=== PATIENT | female | born 1980 | race Caucasian/White ===

== ENCOUNTER 2019-04-16 06:43 | Emergency (ER) | payer MEDICAID, SELFPAY ==
[2019-04-16 06:44] VITALS: BP 143/106; PULSE 86; RESP 16; TEMP 36.6; O2SAT 100; BMI 35.7
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
[2019-04-16] MEDS: Ketorolac 30 MG/ML Syringe IM (07:28)
[2019-04-16] MEDS: Orphenadrine 60 MG/2 ML Ampul IM (07:28)
--- NOTE | 2019-04-16 07:38 | RAD_ITS ---
STUDY: X-RAY - PELVIS AND RIGHT HIP REASON FOR EXAM: Female, 39 years old. Right hip pain. TECHNIQUE: 3 views of the pelvis and hip. COMPARISON: None. FINDINGS: There is a non-specific bowel gas pattern. Normal visualized soft tissue structures. Normal bilateral iliac wings, sacroiliac joints and visualized sacrum. Normal bilateral superior and inferior pubic rami. Normal pubic symphysis. Normal bilateral ischial tuberosities. Normal visualized femoral head. Normal acetabulum. Normal hip joint. RAD/HIP, UNI W/ Pelvis 2-3 Views IMPRESSION: Normal x-ray examination of the pelvis and hip. Electronically Signed: Jluis Mcknight, at 8:16 EDT , Service support ,
--- NOTE | 2019-04-16 07:48 | RAD_ITS ---
STUDY: X-RAY - LUMBAR SPINE REASON FOR EXAM: Female, 39 years old. Low back pain. TECHNIQUE: 3 view(s) of the lumbar spine were obtained. COMPARISON: None FINDINGS: Normal lumbar lordosis. There is no substantial scoliosis. There is a normal alignment of the vertebrae. Minimal anterior spondylosis at the L3-L4 level. Normal disc space heights. Large amount of fecal material is seen in the colon. RAD/Lumbar Spine 2 or 3 Views IMPRESSION: Degenerative changes of the spine, as detailed above. Electronically Signed: Jluis Mcknight, at 8:15 EDT , Service support ,
[2019-04-16 08:47] VITALS: BP 138/72; PULSE 82; RESP 18; TEMP 36.6; O2SAT 99
== END 2019-04-16 08:48 | disposition home or self-care (01) ==
PROVIDERS: Emergency Provider Emergency Medicine
DX: M54.5 Low back pain (principal); Z87.898 Personal history of other specified conditions; F17.200 Nicotine dependence, unspecified, uncomplicated
CPT/HCPCS: 72100; 73502; 96372; 99284

== ENCOUNTER 2019-08-17 21:10 | Emergency (ER) | payer MEDICAID, SELFPAY ==
[2019-08-17 21:10] VITALS: BP 152/89; PULSE 83; RESP 18; TEMP 36.5; O2SAT 100; BMI 32.1
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
--- NOTE | 2019-08-17 21:26 | RAD_ITS ---
HISTORY: PT FELL TODAY, PAIN IN RT 1ST DIGIT COMPARISON: None FINDINGS: # of images incl. paperwork: 3 XR Foot Min 3 Views : Patient has had an osteotomy of the distal first metatarsal with screw fixation. The bone appears to be fractured between the base of the screw and the medial aspect of the distal metaphysis of the first metatarsal. A comminuted fracture is present through the distal end of the first proximal phalanx with intra-articular extension and overriding fracture fragments. Soft tissue swelling is present. The screw within the first metatarsal is proud. It extends cranially out of the cortex by several millimeters and may have loosened. No additional fractures are perceived. RAD/Foot min 3 Views IMPRESSION: Acute comminuted fracture of the distal end of the first proximal phalanx. Possible nondisplaced fracture extending from the proximal aspect of the fixation screw in the first metatarsal to the medial cortex. at 2205 Reported and signed by: Chase Shirley MD Electronically Signed: Chase Shirley MD at 22:04 EST Tel , Service support ,
--- NOTE | 2019-08-17 21:30 | RAD_ITS ---
HISTORY: PT FELL TODAY, LATERAL LT ANKLE PAIN COMPARISON: None FINDINGS: # of images incl. paperwork: 3 XR Ankle Min 3 Views : Patient has had a osteotomy and bunionectomy on the distal first metatarsal No fracture or osseous abnormality. The ankle mortise is intact. Soft tissue swelling is not seen. RAD/Ankle min 3 Views IMPRESSION: Normal left ankle. at 2212 Reported and signed by: Chase Shirley MD Electronically Signed: Chase Shirley MD at 22:14 EST Tel , Service support ,
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
[2019-08-17] MEDS: oxyCODONE 5 MG Tablet PO (22:45)
== END 2019-08-17 23:07 | disposition home or self-care (01) ==
PROVIDERS: Emergency Provider Emergency Medicine
DX: S62.304A Unspecified fracture of fourth metacarpal bone, right hand, initial encounter for closed fracture (principal); S92.411A Displaced fracture of proximal phalanx of right great toe, initial encounter for closed fracture; X50.1XXA Overexertion from prolonged static or awkward postures, initial encounter; Y04.0XXA Assault by unarmed brawl or fight, initial encounter; Y93.9 Activity, unspecified; Y92.9 Unspecified place or not applicable; Z87.898 Personal history of other specified conditions; F17.200 Nicotine dependence, unspecified, uncomplicated
CPT/HCPCS: 73130; 73610; 73630; 99284

== ENCOUNTER 2019-09-07 12:46 | Day surgery (SDC) | payer MEDICAID, SELFPAY ==
[2019-09-07] VITALS (7 sets, daily range): BP systolic 116–148; BP diastolic 78–97; PULSE 54–71; RESP 15–16; TEMP 36.2–36.8; O2SAT 95–100; BMI 32.5
[2019-09-07 13:17] LABS: Internal QC Validated? YES +Cl - CLEAR BKGD; Pregnancy, Urine Negative Negative
[2019-09-07 13:28] LABS: Absolute Lymphocyte Count 1.91 X10^3/uL (0.83-4.51); Absolute Neutrophil Count 4.8 X10^3/uL (2.0-7.7); Basophil# 0.03 X10^3/uL; Basophil% 0.4 % (0-1); Eosinophil# 0.21 X10^3/uL; Eosinophils% 2.9 % (0-5); Hematocrit 45.4 % (37-47); Hemoglobin 14.6 g/dL (12.0-15.0); Lymphocyte # 1.91 X10^3/ul (4.0); Lymphocyte % 26.1 % (19-41); Mean Corp Hgb Conc 32.2 g/dL (32-36); Mean Corpuscular Volume 93.4 fL (81-99); Monocyte# 0.39 X10^3/uL; Monocyte% 5.3 % (0-10); NRBC Flagged by Analyzer 0 % (0-5); Neutrophil # 4.76 X10^3/uL (2.7-7.7); Platelet Count 186 K/mm3 (150-450); RBC Distribution Width CV 14.5 % (11.6-14.6); RBC Distribution Width SD 49.8 fl (35.1-43.9); Red Blood Count 4.86 M/mm3 (4.2-5.4); White Blood Count 7.3 K/mm3 (4.4-11.0)
[2019-09-07] MEDS: Lactated Ringers 1,000 ML 100 ML IV (13:42)
[2019-09-07 13:44] LABS: ALB/GLOB Ratio 0.9 RATIO (0.9-2.4); AST(SGOT) 34 U/L (15-37); Alanine Aminotransfer ALT/SGPT 58 U/L (13-56); Albumin, Serum 3.5 g/dL (3.2-5.0); Alkaline Phosphatase 85 U/L (45-117); Anion Gap 1 (5-15); BUN 13 mg/dL (7-18); BUN/Creat Ratio 17.2 RATIO (10-20); Calcium,Total 8.7 mg/dL (8.5-10.1); Chloride 111 mmol/L (98-107); Creatinine, Serum 0.76 mg/dL (0.55-1.02); EST Glomerular Filtration Rate 91 mL/min (>60); Est Glom Filt Rate - Afr Amer 110 mL/min (>60); Estimated Creatinine Clearance 79.38 ml/min; Globulin 3.8 g/dL (2.2-4.2); Glucose 84 mg/dL (74-106); Potassium 4.6 mmol/L (3.5-5.1); Protein, Total 7.3 g/dL (6.4-8.2); Sodium Level 141 mmol/L (136-145)
--- NOTE | 2019-09-07 14:15 | BON_PTH ---
PATIENT: PAYTON TITUS [place] [facility] [place][id number] AGE/SX: 39/F ROOM: RE09/07/[address]: DEMETRICE HernándezM : 1980 BED: DIS: 09/07/2019 SPEC #: [id number] RECD: 09/07/19 17:00 STATUS: PETER OLGA #: [id number] CHAUNCEY: 09/07/19 14:[address]: Russell Vidales DEPT: SURGICAL PATHOLOGY RECD BY: Derrell Rivas ENTERED: 09/08/19 10:47 SP TYPE: Bone OTHR DR: Out of Town Doctor Tissues: Bone of foot, NOS Procedures: Decalcification bone/plaque Surgery Specimen Level IV HEADER OPERATION: First toe and placement cadaveric bone graft PRE-OP DIAGNOSIS: Displaced fracture of proximal phalanx of right great toe, pain in right foot TISSUE SUBMITTED: First toe fracture, right foot MICROSCOPIC DIAGNOSIS First toe of right foot, fracture, biopsy: Granulation tissue consistent with organizing fracture site. Bone with reactive and reparative change. AM:sabrina 09/11/19 MICROSCOPIC DESCRIPTION Slides are reviewed. GROSS DESCRIPTION Received is one container labeled with the patient name and designated first toe right foot. The specimen consists of multiple irregular fragments of light daley bone that in aggregate measure 3 x 2 x 0.2 cm. The specimen is totally submitted in one cassette after decalcification. /AM:bree 09/08/19 TC:5 [facility]: [id number], [id number]
[2019-09-07] MEDS: Cefazolin 2 GM in 0.9% Normal Saline 100 ML IV (14:52)
--- NOTE | 2019-09-07 15:00 | RAD_ITS ---
STUDY: X-RAY - RIGHT FOOT CLINICAL: Female, 39 years old. First toe fracture. Fusion TECHNIQUE: 3 view(s) of the foot from intraoperative fluoroscopy. Fluoroscopy utilized for 0 minutes 42 seconds.. COMPARISON: August 17, 2019. FINDINGS: Intraoperative fluoroscopy utilized during ORIF of first proximal phalanx fracture and placement of a screw across the first interphalangeal joint. There is prior osteotomy and screw placement in the first metatarsal head. RAD/Foot 2 Views IMPRESSION: Intraoperative fluoroscopy. Electronically Signed: Kei Acevedo MD at 16:51 EST , Service support ,
--- NOTE | 2019-09-07 15:02 | DCINST_ITS ---
Discharge Diet: Light diet - advance as tolerated Discharge Activity: May Not Drive Weight Bearing Status: No weight bearing - No weightbearing on toes or ball of right foot Keep extremity elevated above heart level: Right Leg - Keep right foot elevated above chest level for at least 50 minutes of every hour Call your doctor if your incision/area has: Continuous Slow Oozing, Sudden Increased Bleeding, Foul Smelling Discharge Call your doctor if you observe: Fever of 101 or Higher, Shortness of breath, Chest pain, Increased palpitations (irregular heartbeat), Calf discomfort, Uncontrolled pain Cleanse incision/area with: Do not get Incision Wet, Keep Dressing Clean & Dry Allergies/Adverse Reactions: Allergies No Known Allergies Allergy (Verified 09/07/19 13:26) Medications to take at Discharge Naproxen [Naprosyn] 500 mg PO BID PRN #20 tab 08/17/19 Naproxen 500 mg PO Q12H PRN PRN 10 Days #20 tab 09/07/19 Oxycodone HCl/Acetaminophen [Percocet 5/325] 1 - 2 tab PO Q6H PRN PRN 4 Days #24 tab 09/07/19 The following prescriptions were given: Naproxen 500 mg PO Q12H PRN PRN 10 Days #20 tab PRN Reason: Pain Score 1-07/09 Prescription Printed Oxycodone HCl/Acetaminophen [Percocet 5/325] 1 - 2 tab PO Q6H PRN PRN 4 Days #24 tab PRN Reason: Pain Prescription Printed Primary Care Physician: PADMINI MARY [Other] Test Results: Test results from this visit will be discussed in further detail at your follow- up appointment, if applicable. Please Follow Up With: Russell Vidales DPM When: in 1 week, sooner if needed
[2019-09-07] MEDS: Bupivacaine Mpf 0.5% 30 ML VIAL (15:15)
--- NOTE | 2019-09-07 16:23 | PCM.OPRPT ---
Report of Operation Date of Procedure: 09/07/19 Pre-Operative Diagnosis: Painful proximal phalanx 1st toe fracture, right Post-Operative Diagnosis: Same Surgery/Procedure Performed:: Right 1st toe interphalangeal arthrodesis scallop binder: yes - Dr. Ana Maher Type of Anesthesia:: General, Local Specimen's removed: Bone from right 1st toe fracture sent to pathology Estimated Blood Loss (mL): 1mL Description of Procedure: Indications: This is a 39 year old female who sustained a significantly displaced comminuted fracture of the right 1st toe at level of the head of the hallux proximal phalanx. Due to the significant degree of fracture we discussed open reduction internal fixation vs arthrodesis of the hallux interphalangeal joint. This was discussed with her in great detail, reviewed the procedures, as well as the rationale of the procedures with her in great detail. We discussed and reviewed the possible benefits vs risks/potential complications. The estimated healing/recovery time and protocol were reviewed with her in detail. Reviewed the goals and the expectations. She expressed understanding and agreement and elected to proceed forward with surgical intervention as noted above. The consent forms were reviewed with her and she freely signed them. All of her questions were answered. No guarantees were given or implied. She was cleared from medical standpoint to proceed with surgery. Also advised patient not to smoke or use tobacco post op as this will likely slow healing and can even cause nonhealing (including nonunion). She understands the risks. Operative Procedure: The patient was brought back into the operating room and was placed on the operating table in the supine position. Patient was carefully secured to the operating room table with a safety belt around her waist. A time out was performed and the patient was properly identified and the surgical plan was confirmed. The patient received IV antibiotic prophylaxis - 2g of Ancef. The patient received general anesthesia per the anesthesiologist. A well padded pneumatic tourniquet was applied around the right ankle. The right foot was scrubbed, prepped, and draped in the usual aseptic fashion. Attention was directed to the right foot, there was significant comminuted displaced fracture of the head of the hallux proximal phalanx. The right foot was elevated for 3 minutes and the right ankle pneumatic tourniquet was inflated to 250mmHg. A total of 10 mL of 5% Bupivacaine plain was given as a lock block around the surgical site (1st ray block). A linear longitudinal skin incision was medially along the dorsal 1st toe, just medial the the extensor hallucis longus tendon. Dissection was completed down to the hallux interphalangeal joint capsule. The hallux interphalangeal joint capsule was incised and was partially reflected visualizing the hallux interphalangeal joint. There was comminuted displaced fracture of the hallux of the hallux proximal phalanx with significant damage and destruction of cartilage to the joint surfaces. There were many fragments of bone in small pieces. The remaining cartilage from the head of the proximal phalanx a as well as from the base of the middle phalanx was resected using a bone cutting rongeur and curette. Resected bone was sent to pathology as specimen. The site was flushed out with copious amounts of normal saline solution. An Arthrex FT compression screw was placed through the phalanges of the 1st toe holding the toe in rectus position, using rigid open reduction internal fixation technique. This was confirmed with intra operative fluoroscopy. The edges were packed with cancellous bone graft. There was good bone to bone contact and the site was rigid. The site was again flushed out with copious amounts of normal saline solution. The capsule and subcutaneous tissue was reapproximated using 4-0 Vicryl. The skin was reapproximated using 4-0 Monocryl. Cavailon was painted to the edges of the sutured skin incision and steristrips were applied across the sutured skin incision. An additional 4mL of a 0.5% Bupivacaine plain was given as a lock block around the surgical site for further pain control. The pneumatic tourniquet was deflated (total tourniquet time was 56 minutes), there was immediate return of warmth and perfusion to the foot and to all toes on the foot with normal temperature gradient and CFT < 2 seconds to all toes once the tourniquet was deflated. A dressing was applied which consisted of Betadine soaked adaptic, 4x4 gauze, Kerlix, and an beth bandage. Of note, all vital structures including all vital neurovascular and tendon structures were properly identified, protected, and retracted as necessary throughout the above operative procedures. The anterior tibial tendon was left intact. The patient tolerated the above operative procedures well at the anesthesia well with no complication. The patient was transported from the operating room to the recovery room with vital signs stable and in good condition. Post operative orders were placed. Post operative instructions were reviewed with her and her family who was with her today. No weightbearing right foot, keep right foot elevated for at least 50 minutes of every hour, keep dressing and splint clean, dry and intact. Prescription for Percocet and Naproxen provided. Post operative xrays were obtained in the recovery room (DP, Oblique, and lateral foot) - there was again noted to be hallux interphalangeal joint arthdoesis in good position, with joint surfaces in good alignment and good bone to bone contract with intact hardware; no acute problems or complications seen. Patient to follow up with me in office within 1 week, sooner if needed. Grafts/Implants Used: 1 x Arthrex 4.0mm screw - Complications None
--- NOTE | 2019-09-07 16:35 | RAD_ITS ---
STUDY: X-RAY - RIGHT FOOT CLINICAL: Female, 39 years old. Fracture TECHNIQUE: 3 view(s) of the foot. COMPARISON: August 17, 2019. FINDINGS: Normal talus, calcaneus, and tarsal bones. Normal visualized subtalar, talonavicular, calcaneocuboid, tarsal and tarsometatarsal articulations. There is stable osteotomy and screw placement the first metatarsal. There is fusion of the first interphalangeal joint with screw extending from the distal to the proximal phalanx. There is improved alignment of fracture of the first proximal phalanx. There is mild degenerative arthrosis of the metatarsophalangeal joint of the hallux. Normal second through fifth metatarsophalangeal joints. Normal interphalangeal joints and phalanges of the lesser toes. The soft tissue structures are unremarkable. RAD/Foot min 3 Views IMPRESSION: Status post ORIF first proximal phalanx fracture with fusion at the first interphalangeal joint. Electronically Signed: Kei Acevedo MD at 16:53 EST , Service support ,
[2019-09-07] MEDS: Acetaminophen 325 MG Tablet PO (17:25)
[2019-09-07] MEDS: oxyCODONE 5 MG Tablet PO (17:26)
== END 2019-09-07 17:47 | disposition home or self-care (01) ==
LOC: SDC 12:48 → AC 13:28
PROVIDERS: Anesthesiology; Referring Provider Podiatrist; Visit Provider Podiatrist
PROC: (CPT 28485; principal; 2019-09-07 14:00)
DX: S92.411A Displaced fracture of proximal phalanx of right great toe, initial encounter for closed fracture (principal); W19.XXXA Unspecified fall, initial encounter; Y93.9 Activity, unspecified; Y92.9 Unspecified place or not applicable; Z86.19 Personal history of other infectious and parasitic diseases; Z87.891 Personal history of nicotine dependence; F17.200 Nicotine dependence, unspecified, uncomplicated
CPT/HCPCS: 28755; 36415; 73620; 73630; 76000; 80053; 81025; 85025; 88304; 88305; 88311; C1713; J7120; A4216; J2405

== ENCOUNTER 2019-09-07 23:14 | Emergency (ER) | payer MEDICAID, SELFPAY ==
[2019-09-07 13:27] VITALS: BMI 32.5
[2019-09-07 23:15] VITALS: BP 139/86; PULSE 87; RESP 19; TEMP 36.6; O2SAT 96; BMI 32.0
--- NOTE | 2019-09-07 23:52 | ED.DCSUM_ITS ---
History of Present Illness Chief Complaint: Lower Extremity Injury Detail of Chief Complaint: Postop pain Informant: Patient Onset: Today Current Severity: Severe Maximum Severity: Severe Narrative: Patient started a recent fracture to her right great toe. She underwent first toe interphalangeal arthrodesis today with Dr. Vidales. Patient states she got home from the hospital around 6 PM. She took 1 tab of naproxen and 1 tab of Percocet at 7:30 PM. She presents here around 11:30 PM crying in severe pain. - Past Medical History (1) Toe fracture Status: Acute Past Medical History - Allergies and Home Meds Allergies/Adverse Reactions: Allergies No Known Allergies Allergy (Verified 09/07/19 23:18) Primary Care Physician: [facility] Doctor,Out of [NON-STAFF] - Smoking Status: Current every day smoker Review of Systems General: Denies: Chills, Fever Eyes: Denies: Visual changes - bilaterally ENT: Denies: Bilateral ear pain Cardiovascular: Denies: Chest pain Respiratory: Denies: Dyspnea, Cough Gastrointestinal: Denies: Abdominal pain, Vomiting Musculoskeletal: Reports: Arthralgias, Extremity Pain Hematologic: Denies: Easy bruising Allergy: Denies: Uticaria Physical Exam Vital Signs/Narrative: Vital Signs Temp Pulse Resp BP Pulse Ox 09/07/19 23:15 97.8 F 87 19 H 139/86 H 96 Inital Vital Signs reviewed: Yes General: Well nourished, Well developed ENT: Moist mucous membranes Cardiovascular: Tachycardia Respiratory: No distress, CTA bilaterally Abdomen: Soft, Nontender Extremities: - - Right foot is elevated on the bed rail. Dressing is pulled back over her toes. She has good coloration and good cap refill. She has good sensation. Neurological: Alert, Oriented x3 Psychological: Tearful Diagnostic/Tx/Re-eval - Medical Decision Making Patient was given 0.5 mg of Dilaudid IV along with Zofran. On repeat evaluation pain is improved and she is requesting discharge to home. She is written for 1- 2 tabs of Percocet every 6 hours. I encouraged her to use 2 tabs at a time for the next day or so to keep her pain under control. She is to return for worsening symptoms or concerns. ED Disposition - Plan for ED Patient: Disposition: Home or Assisted Living Diagnosis: Postoperative pain Instructions: POST OP WOUND CHECK, Pain Referrals: Russell Vidales DPM [STAFF PHYSICIAN] -
[2019-09-08] MEDS: HYDROmorphone 1 MG/ML Syringe 0.5 MG IV (00:28)
[2019-09-08] MEDS: Ondansetron 4 MG/2 ML Vial IV (00:28)
== END 2019-09-08 01:18 | disposition home or self-care (01) ==
PROVIDERS: Emergency Provider Emergency Medicine
DX: M79.674 Pain in right toe(s) (principal); Z98.890 Other specified postprocedural states; F17.200 Nicotine dependence, unspecified, uncomplicated
CPT/HCPCS: 96374; 96375; 99283; A4216; J2405

== ENCOUNTER 2019-11-05 04:34 | Emergency (ER) | payer MEDICAID, SELFPAY ==
[2019-11-05 04:36] VITALS: BP 139/109; PULSE 93; RESP 12; TEMP 36.9; O2SAT 98; BMI 29.9
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
[2019-11-05] MEDS: HYDROcodone Bitartrate/Apap 5/325 Tablet PO (04:52)
[2019-11-05] MEDS: Ibuprofen 400 MG Tablet 800 MG PO (04:52)
[2019-11-05] MEDS: Diphth,Pertuss(Acell),Tet Vac 0.5 ML Vial IM (04:53)
[2019-11-05 05:33] VITALS: BP 144/97; PULSE 83; RESP 18; O2SAT 97
== END 2019-11-05 05:34 | disposition home or self-care (01) ==
PROVIDERS: Emergency Provider Emergency Medicine
DX: T71.9XXA Asphyxiation due to unspecified cause, initial encounter (principal); Y04.0XXA Assault by unarmed brawl or fight, initial encounter; Y93.9 Activity, unspecified; Y92.9 Unspecified place or not applicable; F17.200 Nicotine dependence, unspecified, uncomplicated
CPT/HCPCS: 90471; 90715; 99283

== ENCOUNTER 2020-02-24 12:24 | Emergency (ER) | payer MEDICAID, SELFPAY ==
[2020-02-24 12:26] VITALS: BP 155/95; PULSE 100; RESP 17; TEMP 36.8; O2SAT 100; BMI 23.8
--- NOTE | 2020-02-24 12:53 | ED.DCSUM_ITS ---
History of Present Illness Chief Complaint: Lower Extremity Injury Informant: Patient Onset: Days - 5 days Context: Gradual Onset Current Severity: Moderate Maximum Severity: Moderate Narrative: Patient presents with 5-day history of right foot pain and swelling. She points to the second MTP joint. She does have swelling to this area. No erythema or warmth. No open wounds. She has had prior surgery on the first metatarsal - Past Medical History (1) No significant past medical history Status: Acute Past Medical History - Allergies and Home Meds Allergies/Adverse Reactions: Allergies No Known Allergies Allergy (Verified 11/05/19 04:35) Primary Care Physician: Care Physician,No Primary [Primary Care Provider] - Prior records reviewed: Yes Surgical History: - - Bilateral tubal ligation Smoking Status: Current every day smoker Review of Systems General: Denies: Chills, Fever Eyes: Denies: Visual changes - bilaterally ENT: Denies: Bilateral ear pain Cardiovascular: Denies: Chest pain Respiratory: Denies: Dyspnea, Cough Gastrointestinal: Denies: Abdominal pain, Nausea, Vomiting, Diarrhea Musculoskeletal: Reports: Swelling, Extremity Pain Skin: Denies: Rash, Wounds Neurological: Denies: Headache Hematologic: Denies: Easy bruising, Easy bleeding Allergy: Denies: Uticaria Physical Exam Vital Signs/Narrative: Vital Signs Temp Pulse Resp BP Pulse Ox 02/24/20 12:26 98.3 F 100 17 155/95 H 100 Inital Vital Signs reviewed: Yes General: Well nourished, Well developed Head: Normocephalic ENT: Moist mucous membranes Neck: Supple Cardiovascular: Regular rate, Regular rhythm Respiratory: No distress, CTA bilaterally Abdomen: Soft, Nontender Extremities: - - Edema over the distal foot. Focal tenderness along the distal second MT. No open wounds. Good cap refill and sensation distally. No tenderness at the ankle. Skin: Normal color Neurological: Alert, Oriented x3 Psychological: Normal affect Diagnostic/Tx/Re-eval Impressions Foot X-Ray 02/24/20 12:55 IMPRESSION: Status post fusion of the interphalangeal joint of the great toe as well as osteotomy of the distal portion of the first metatarsal. Electronically Signed: Jlusi Mcknight, at 13:22 EDT , Service support , 02/24/20 12:55 Foot min 3 Views [RAD] Stat - Medical Decision Making Patient was given naproxen here for pain. Test results discussed with the patient. Alec wrap will be applied. She declines crutches. She will be given naproxen and a few days of steroids. She is referred to podiatry if not improving. ED Disposition - Plan for ED Patient: Disposition: Home or Assisted Living Diagnosis: Foot sprain Instructions: ED Sprain Foot Prescriptions: Prednisone [Deltasone] 40 mg PO DAILY #10 tab Transmission Status: Pending to [facility] Naproxen [Naprosyn] 500 mg PO BID PRN PRN #20 tab PRN Reason: Pain Score 4-10/10 Transmission Status: Pending to [facility] Referrals: Russell Vidales DPM [STAFF PHYSICIAN] - 1 Week if not improving
--- NOTE | 2020-02-24 12:55 | RAD_ITS ---
STUDY: X-RAY - RIGHT FOOT CLINICAL: Female, 40 years old. Distal dorsal pain, nki TECHNIQUE: 3 view(s) of the foot. COMPARISON: Comparison is made with prior examination dated September 07, 2019. FINDINGS: Normal talus, calcaneus, and tarsal bones. Normal visualized subtalar, talonavicular, calcaneocuboid, tarsal and tarsometatarsal articulations. Normal metatarsi. The patient is status post fusion of the distal interphalangeal joint of the great toe. Status post osteotomy of the distal aspect of the first metatarsal. Normal tibial and fibular sesamoid bones. Normal interphalangeal joint of the great toe. Normal phalanges of the great toe. Normal second through fifth metatarsophalangeal joints. Normal interphalangeal joints and phalanges of the lesser toes. The soft tissue structures are unremarkable. RAD/Foot min 3 Views IMPRESSION: Status post fusion of the interphalangeal joint of the great toe as well as osteotomy of the distal portion of the first metatarsal. Electronically Signed: Jluis Mcknight, at 13:22 EDT , Service support ,
[2020-02-24] MEDS: Naproxen 500 MG Tablet PO (12:56)
== END 2020-02-24 13:56 | disposition home or self-care (01) ==
PROVIDERS: Emergency Provider Emergency Medicine
DX: S93.601A Unspecified sprain of right foot, initial encounter (principal); X58.XXXA Exposure to other specified factors, initial encounter; Y93.9 Activity, unspecified; Y92.9 Unspecified place or not applicable; F17.200 Nicotine dependence, unspecified, uncomplicated
CPT/HCPCS: 73630; 99283

== ENCOUNTER 2020-04-16 14:21 | Emergency (ER) | payer MEDICAID, SELFPAY ==
[2020-04-16 14:23] VITALS: BP 136/16; PULSE 98; RESP 16; TEMP 36.7; O2SAT 99; BMI 24.5
--- NOTE | 2020-04-16 14:54 | ED.DCSUM_ITS ---
History of Present Illness Chief Complaint: Rash Informant: Patient Onset: Days Context: Gradual Onset Timing: Continuous Narrative: Patient is a 40-year-old female denies any past medical history presenting with rash to her left flank area. She states is very itchy and irritates her especially she bumps up against anything. She also has a little bit on her left back. Patient states he is never had a rash like this before. It is now starting to scab over. She denies associated fever, chills or any other systemic symptoms. Patient also notes that for the past 3 days she has had frequency of urination and dysuria at the end of urination. She denies any blood in her urine. She denies any abnormal vaginal bleeding or discharge. She is concerned she might have a urinary tract infection. Past Medical History - Allergies and Home Meds Allergies/Adverse Reactions: Allergies No Known Allergies Allergy (Verified 04/16/20 14:23) Primary Care Physician: Amber Draper MD [STAFF PHYSICIAN] - Past Medical History: None Surgical History: - - Bilateral tubal ligation Smoking Status: Current every day smoker Review of Systems General: Denies: Chills, Fever, Sweats Eyes: Denies: Visual changes - bilaterally, Diplopia ENT: Denies: Rhinorrhea, Sore throat Cardiovascular: Denies: Chest pain, Palpitations Respiratory: Denies: Dyspnea, Cough, Dyspnea on exertion Gastrointestinal: Denies: Abdominal pain, Nausea, Vomiting, Diarrhea, Melena, Hematochezia Genitourinary: Reports: Dysuria, Frequency. Denies: Hematuria Musculoskeletal: Denies: Back pain, Extremity Pain Skin: Reports: Rash. Denies: Wounds Neurological: Denies: Headache, Weakness, Numbness Physical Exam Vital Signs/Narrative: Vital Signs Temp Pulse Resp BP Pulse Ox 04/16/20 14:23 98.1 F 98 16 136/16 H 99 General: Well nourished, Well developed, No Acute Distress Head: Normocephalic, Atraumatic Eyes: Perrl, EOMI ENT: Moist mucous membranes, No rhinorrhea Neck: Supple, Nontender Cardiovascular: Regular rate, Regular rhythm, No murmurs Respiratory: No distress, CTA bilaterally, Chest nontender Abdomen: Soft, Nontender, Nondistended, Normal bowel sounds Back: Nontender, Normal Inspection Extremities: Nontender, No edema Skin: Normal color, Rash - Erythematous, vesicular rash of the left mid abdomen and radiated to the back in a dermatomal pattern. Some of the lesions are starting to crust over. Rash is highly consistent with shingles. No significa nt surrounding erythema or signs of bacterial superinfection. Neurological: Alert, Oriented x3, Cranial nerves II-XII grossly intact, Normal Strength, Normal Sensation Psychological: Normal affect, Normal Mood Diagnostic/Tx/Re-eval Laboratory Data 04/16/20 04/16/20 15:05 15:05 Urine Color Yellow Urine Clarity Sl. Cloudy Urine pH 5.0 Ur Specific Kiefer 1.030 Urine Protein 30 H Urine Glucose (UA) Normal Urine Ketones 5 H Urine Occult Blood 25 H Urine Nitrite Positive H Urine Bilirubin Negative Urine Urobilinogen Normal Ur Leukocyte Esterase 500 H Urine RBC 0 SEEN Urine WBC 50-100 SEEN Ur Squamous Epith Cells 0-5 SEEN Urine Bacteria 1+ Urine Mucus 1+ Urine Test Negative - Medical Decision Making Patient is evaluated for rash. Present for about 4 days. The rash is co nsistent with shingles. As the rash is been present for more than 72 hours I do not think antiviral therapy at this point would be helpful. She is given a Lidoderm patch in the ER. While doing the review of systems she also comments that she has had symptoms consistent with a UTI for the past 3 days. Initial urine is consistent with a UTI. Patient does not want a wait for the microscopic. She will be started on Keflex. As she is low risk, cultures not sent. Patient is counseled on using Lidoderm patch for pain control. She is counseled to keep it covered and avoid direct contact with small children or anyone who is immunocompromise until all of the vesicles have blistered over. Patient is counseled on signs and symptoms requiring return to the emergency room. Patient verbalizes agreement and understand this plan. Patient discharged home in stable and improved condition. ED Disposition - Plan for ED Patient: Disposition: Home or Assisted Living Diagnosis: Herpes zoster dermatitis, UTI (urinary tract infection) Instructions: ED CYSTITIS Female Adult, ED Shingles Prescriptions: Cephalexin [Keflex] 500 mg PO Q12 #10 cap Transmission Status: [id number] Lidocaine [Lidoderm Patch] 1 patch TOPICAL DAILY #6 patch Transmission Status: [id number] Referrals: Amber Draper MD [STAFF PHYSICIAN] -
[2020-04-16 15:13] LABS: Red Blood Cells-Urine 0 SEEN /hpf (0-5)
[2020-04-16 15:18] LABS: Color, Urine Yellow (Yellow); Glucose, Dipstick Normal (Normal); Ketone-Dipstick 5 mg/dl (Negative); Leukocyte Esterase-Dipstick 500 /ul (Negative); Nitrite-Dipstick Positive (Negative); Occult Blood-Urine 25 /ul (Negative); Protein-Dipstick 30 mg/dl (Negative); Urine Bilirubin Dipstick Negative (Negative); Urine Clarity Sl. Cloudy (Clear); Urine Urobilinogen Normal (Normal)
[2020-04-16 15:20] LABS: Internal QC Validated? YES +Cl - CLEAR BKGD; Pregnancy, Urine Negative Negative
[2020-04-16 15:24] LABS: White Blood Cells 50-100 SEEN /hpf (0-5)
--- NOTE | 2020-04-16 15:24 | ED.RN ---
Patient refusing to stay for test results and medication. Dr Jarvis made aware. Patient left before discharge instructions were completed.
[2020-04-16 15:25] LABS: Bacteria 1+ /hpf (None Seen); Mucous, Urine 1+ /hpf (<or=2+); Squamous Epithelial Cells - UA 0-5 SEEN /hpf (5-10)
[2020-04-16 15:41] VITALS: RESP 16
== END 2020-04-16 15:41 | disposition home or self-care (01) ==
PROVIDERS: Emergency Provider Emergency Medicine
DX: B02.8 Zoster with other complications (principal); N39.0 Urinary tract infection, site not specified; F17.200 Nicotine dependence, unspecified, uncomplicated; Z98.51 Tubal ligation status
CPT/HCPCS: 81001; 81025; 99281; 99282

== ENCOUNTER 2020-05-19 21:18 | Emergency (ER) | payer MEDICAID, SELFPAY ==
[2020-05-19 21:20] VITALS: BP 147/110; PULSE 120; RESP 18; TEMP 36.6; O2SAT 99; BMI 24.7
[2020-05-19] MEDS: HYDROmorphone 1 MG/ML Syringe IM (22:53)
[2020-05-19] MEDS: Ondansetron ODT 4 MG Tablet PO (22:54)
--- NOTE | 2020-05-19 23:26 | ED.DCSUM_ITS ---
- ER Visit Summary Date of Service: 05/19/20 Chief Complaint: Abscess History of Present Illness: The patient is a 40 F with no primary care physician. She reports he has an abscess on the posterior right thigh that began 5 to 6 days ago. She has an aching pain is 10-10 in severity. Is worsened by walking or touching it. Is relieved by nothing. It has been draining. She denies any fever or chills. She is had nausea without vomiting. Physical Examination: Vitals: Stable. Afebrile. General: Well-nourished and well-developed. Head: Normocephalic atraumatic. Neck: Supple, no lymphadenopathy. No JVD. Nontender. Cardiovascular: Regular rate and rhythm. No murmurs. Respiratory: No respiratory distress. Clear to auscultation bilaterally. Abdominal: Soft, nontender, nondistended, normal bowel sounds. No guarding, rebound, or peritoneal signs. Back: Nontender. Extremities: Posterior medial right thigh there is a 2 cm indurated area with approximate 10 cm surrounding erythema. She is neuro vas intact distal to this. Neurologic: Alert and oriented ?3. Cranial nerves II through XII are intact. Normal strength and sensation. Psych: Normal affect. Emergency Department Course and Treatment: Patient was given a dose of Dilaudid IM and Zofran p.o. She had an I&D performed. She tolerated this well. Treatment Plan: Patient will be discharged with doxycycline, [place], and Zofran. Instructed to follow-up with Dr. Mcclain in 2 days for a wound check. Return to the emergency department for any worsening symptoms. Disposition: To home in improved and stable condition. Impression: 1. Abscess right thigh. 2. Incision and drainage. Procedure Note: Abscess was cleansed with chlorhexidine soap. Anesthetized with 1% lidocaine without epinephrine. An incision was made with an 11 scalpel blade. A moderate amount of pus was drained. Curved hemostats were used to break up loculations. The wound was copiously irrigated with normal saline. It was loosely packed with iodoform gauze. The patient tolerated it well. This note was generated with [employer] software. It may contain incorrect words, spelling, and punctuation that were not noted in review of the chart prior to signing ED Disposition - Plan for ED Patient: Disposition: Home or Assisted Living Instructions: ED Abscess Incision And Drainage Prescriptions: Doxycycline 100 mg PO BID #14 cap Prescription Printed Hydrocodone Bitart/Apap 5-325 [[place] 5MG-325MG] 1 tab PO Q4H PRN PRN 2 Days #10 tab PRN Reason: Pain Prescription Printed Ondansetron [Zofran Odt] 4 mg PO Q8H PRN PRN #10 tab PRN Reason: Nausea Prescription Printed Referrals: Tommy Mcclain MD [STAFF PHYSICIAN] - 2 Days for wound check
[2020-05-20 00:32] VITALS: PULSE 100; RESP 16; O2SAT 98
== END 2020-05-20 00:32 | disposition home or self-care (01) ==
PROVIDERS: Emergency Provider Emergency Medicine
DX: L02.415 Cutaneous abscess of right lower limb (principal); R11.0 Nausea; R51 Headache; M54.2 Cervicalgia; R19.7 Diarrhea, unspecified; R06.00 Dyspnea, unspecified; F17.200 Nicotine dependence, unspecified, uncomplicated
CPT/HCPCS: 10060; 96372; 99283

== ENCOUNTER 2020-06-02 00:42 | Emergency (ER) | payer MEDICAID, SELFPAY ==
[2020-06-02 00:43] VITALS: BP 151/113; PULSE 109; RESP 18; TEMP 37.1; O2SAT 99; BMI 25.5
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
[2020-06-02] MEDS: Diphth,Pertuss(Acell),Tet Vac 0.5 ML Vial IM (02:08)
[2020-06-02] MEDS: Acetaminophen 500 MG Tablet 1000 MG PO (02:08)
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
[2020-06-02] MEDS: Lidocaine/Epi/Tetracaine 50 ML 1 APPLIC TOPICAL (02:20)
[2020-06-02 02:48] VITALS: PULSE 96; RESP 16; O2SAT 98
[2020-06-02 04:00] VITALS: RESP 18
[2020-06-02 05:06] VITALS: BP 149/81; PULSE 98; O2SAT 100
== END 2020-06-02 05:05 | disposition home or self-care (01) ==
PROVIDERS: Emergency Provider Emergency Medicine
DX: S01.01XA Laceration without foreign body of scalp, initial encounter (principal); Y04.0XXA Assault by unarmed brawl or fight, initial encounter; Y93.9 Activity, unspecified; Y92.009 Unspecified place in unspecified non-institutional (private) residence as the place of occurrence of the external cause; F15.90 Other stimulant use, unspecified, uncomplicated; F10.99 Alcohol use, unspecified with unspecified alcohol-induced disorder; F17.200 Nicotine dependence, unspecified, uncomplicated
CPT/HCPCS: 12001; 70450; 90471; 90715; 99284

== ENCOUNTER 2020-11-18 15:46 | Emergency (ER) | payer MEDICAID, SELFPAY ==
[2020-11-18 15:47] VITALS: BP 154/112; PULSE 92; RESP 16; TEMP 36; O2SAT 97; BMI 23.8
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
[2020-11-18 16:43] VITALS: BP 108/77; PULSE 62; RESP 15; O2SAT 98
== END 2020-11-18 16:46 | disposition home or self-care (01) ==
PROVIDERS: Emergency Provider Emergency Medicine
DX: G56.03 Carpal tunnel syndrome, bilateral upper limbs (principal); S39.012A Strain of muscle, fascia and tendon of lower back, initial encounter; X58.XXXA Exposure to other specified factors, initial encounter; Y93.9 Activity, unspecified; Y92.9 Unspecified place or not applicable; F17.200 Nicotine dependence, unspecified, uncomplicated
CPT/HCPCS: 99283

== ENCOUNTER 2021-01-12 17:20 | Emergency (ER) | payer MEDICAID, SELFPAY ==
[2021-01-12 17:21] VITALS: BP 148/109; PULSE 93; RESP 18; TEMP 36.2; O2SAT 96; BMI 24.2
--- NOTE | 2021-01-12 18:02 | CT_ITS ---
STUDY: CT ABDOMEN AND PELVIS WITHOUT CONTRAST REASON FOR EXAM: Female, 41 years old. abdominal pain RADIATION DOSAGE (If Supplied By Facility): CTDIvol = ( 6.36 ) mGy, DLP = ( 286.11 ) mGycm TECHNIQUE: Transaxial images were obtained from the dome of the diaphragm to the symphysis pubis without oral contrast, and without intravenous contrast. Sagittal and coronal images were reconstructed. Individualized dose optimization techniques were used for this CT. COMPARISON: None. FINDINGS: Mild scarring at the right lung base. No acute pulmonary findings. The visualized portions of the heart are within normal limits. Normal liver. 1 tiny calcification in the gallbladder. Normal spleen. Normal pancreas. Normal bilateral adrenal glands. 2.5 cm simple cyst lower pole of the right kidney. Otherwise normal right kidney. Normal left kidney. Normal visualized stomach. Normal small intestine. Stool filled colon. The appendix is visualized and appears normal. Normal abdominal aorta. Normal inferior vena cava. Normal retroperitoneum. Nondistended urinary bladder. Negative for pelvic mass or substantial free fluid of the pelvis. Status post tubal ligation. Normal abdominal wall. Normal osseous structures. CT/Abdomen/Pelvis without Cont IMPRESSION: Stool-filled colon. Nondistended small bowel and stomach. Negative for inflammatory features. A normal appendix is identified. Normal size of the kidneys bilaterally without hydronephrosis or stones. 2.5 cm cyst lower pole right kidney. Unremarkable liver, spleen and pancreas with a nondistended gallbladder. One tiny calcification, stone or wall calcification. Negative for bile duct dilatation. Negative for pelvic mass or free fluid in the pelvis. Status post tubal ligation. Electronically Signed: Yazmin Antunez MD at 20:29 EDT , Service support ,
[2021-01-12 18:28] LABS: Mucous, Urine 0 SEEN /hpf (<or=2+); Red Blood Cells-Urine 0 SEEN /hpf (0-5); White Blood Cells 0 SEEN /hpf (0-5)
[2021-01-12 18:32] LABS: Absolute Lymphocyte Count 1.62 X10^3/uL (0.83-4.51); Absolute Neutrophil Count 6.7 X10^3/uL (2.0-7.7); Basophil# 0.03 X10^3/uL; Basophil% 0.3 % (0-1); Eosinophil# 0.17 X10^3/uL; Eosinophils% 1.9 % (0-5); Hematocrit 46.6 % (37-47); Hemoglobin 14.9 g/dL (12.0-15.0); Lymphocyte # 1.62 X10^3/ul (0.83-4.51); Mean Corpuscular Hgb 29.4 pg (27.0-32.0); Mean Corpuscular Volume 91.9 fL (81-99); Mean Platelet Vol. 9.4 fl (6.2-12.0); Monocyte# 0.42 X10^3/uL; Monocyte% 4.7 % (0-10); NRBC Flagged by Analyzer 0 % (0-5); Neutrophil # 6.73 X10^3/uL (2.7-7.7); Neutrophil % 74.7 % (47-70); Platelet Count 228 K/mm3 (150-450); RBC Distribution Width SD 44.1 fl (35.1-43.9); Red Blood Count 5.07 M/mm3 (4.2-5.4)
[2021-01-12] MEDS: 0.9% Normal Saline 1,000 ML 150 ML IV (18:34)
[2021-01-12 18:40] LABS: Color, Urine Yellow (Yellow); Glucose, Dipstick Normal (Normal); Ketone-Dipstick Negative (Negative); Leukocyte Esterase-Dipstick Negative /ul (Negative); Nitrite-Dipstick Negative (Negative); Occult Blood-Urine Negative /ul (Negative); Protein-Dipstick 30 mg/dl (Negative); Specific Gravity, Urine 1.015 (1.002-1.030); Urine Bilirubin Dipstick Negative (Negative); Urine Clarity Sl. Cloudy (Clear); Urine Urobilinogen Normal (Normal)
[2021-01-12 18:44] LABS: Internal QC Validated? YES +Cl - CLEAR BKGD; Pregnancy, Serum, hCG Quali. NEGATIVE Negative
[2021-01-12 18:48] LABS: Amphetamine Urine VISTA POSITIVE (<1000 ng/mL); Barbiturate Urine VISTA NEGATIVE (< 200 ng/mL); Benzodiazepine Urine VISTA NEGATIVE (< 200 ng/mL); Cocaine Urine VISTA NEGATIVE (< 300 ng/mL); Ecstacy Urine VISTA NEGATIVE (< 500 ng/mL); Methadone Urine VISTA NEGATIVE (< 300 ng/mL); PCP Urine VISTA NEGATIVE (< 25 ng/mL); THC Urine VISTA POSITIVE (< 50 ng/mL); Vista UDS pH Range 7
[2021-01-12 18:49] LABS: Amorphous Sediment 2+; Bacteria 1+ /hpf (None Seen); Squamous Epithelial Cells - UA 0-5 SEEN /hpf (5-10)
[2021-01-12 19:43] VITALS: RESP 14
[2021-01-12 19:52] LABS: ALB/GLOB Ratio 0.8 RATIO (0.9-2.4); AST(SGOT) 55 U/L (15-37); Alanine Aminotransfer ALT/SGPT 56 U/L (13-56); Albumin, Serum 3.1 g/dL (3.2-5.0); Alkaline Phosphatase 68 U/L (45-117); Anion Gap 3 (5-15); BUN 12 mg/dL (7-18); Calcium,Total 8.2 mg/dL (8.5-10.1); Chloride 106 mmol/L (98-107); EST Glomerular Filtration Rate 118 mL/min (>60); Est Glom Filt Rate - Afr Amer 143 mL/min (>60); Estimated Creatinine Clearance 98.58 ml/min; Glucose 83 mg/dL (74-106); Potassium 4.7 mmol/L (3.5-5.1); Protein, Total 7.1 g/dL (6.4-8.2); Sodium Level 138 mmol/L (136-145)
--- NOTE | 2021-01-12 20:36 | ED.DCSUM_ITS ---
- ER Visit Summary Date of Service: 01/12/21 Chief Complaint: [Vomiting] History of Present Illness: The patient is a 41 F [presents to the emergency department with complaint of vomiting that started around 1 PM. Patient states that she is thrown up 3 times and it smells of feces. Patient denies any fevers or recent illness otherwise. She denies any diarrhea. Denies any significant abdominal pain. Patient states that she has had some Covid exposures and that her mother is currently Covid positive and she has had other family members that have been Covid positive. Patient denies loss of taste or smell. Patient does have history of hep C. Patient does have history of illicit drug use including methamphetamines. Patient normally uses IV. He has not had any prior abdominal surgeries.] Physical Examination: [HEENT-PERRLA, EOMI. Cranial nerves II through XII grossly intact. TMs clear. Mucous membranes moist. No adenopathy. Cardiovascular-regular rate and rhythm without murmur or ectopy Lungs-clear to auscultation, chest wall stable without crepitus or subcu e mphysema Abdomen-normoactive bowel sounds, soft. Patient has some mild diffuse tenderness on exam. There is no rebound, rigidity, or peritoneal signs. Patient does not localize to any one area of the abdomen. Extremities-intact ?4, normal range of motion, normal pulses, atraumatic] Test Results: [CBC with differential obtained showed a white count 9.0, hemoglobin 15, hematocrit 47, platelets 228. Chemistries unremarkable. LFTs unremarkable. Urinalysis normal. hCG was negative. COVID-19 test rapid antigen was negative. Toxicology screen was positive for amphetamines and marijuana. CT scan of the abdomen pelvis without contrast was essentially unremarkable.] Emergency Department Course and Treatment: [IV line established on arrival. Patient was treated with Zofran 4 mg IV. Patient had no further vomiting.] Treatment Plan: [Patient will be given a prescription for Zofran and advised to follow-up with primary care physician stitcher tape controlled machine for no doc within the next 3 to 5 days. Patient advised to return if worsening pain, persistent vomiting, dehydration, or condition should worsen anyway.] Disposition: [Discharged home in stable condition] Impression: [Vomiting-etiology uncertain Abdominal pain-etiology uncertain] This note was generated with fitmobation software. It may contain incorrect words, spelling, and punctuation that were not noted in review of the chart prior to signing ED Disposition - Plan for ED Patient: Referrals: Care Physician,No Primary [Primary Care Provider] -
--- NOTE | 2021-01-12 20:39 | ED.DEP ---
ED Disposition - Plan for ED Patient: Instructions: ED Vomiting (Adult) Prescriptions: Ondansetron [Zofran Odt] 4 mg PO Q8H PRN PRN #10 tablet PRN Reason: Nausea Prescription Printed Referrals: Care Physician,No Primary [Primary Care Provider] - Victor Hugo Ashraf MD [STAFF PHYSICIAN] - 3-5 Days
[2021-01-12] MEDS: Ondansetron 4 MG/2 ML Vial IV (20:56)
== END 2021-01-12 20:56 | disposition home or self-care (01) ==
LOC: ED 18:37
PROVIDERS: Emergency Provider Emergency Medicine
DX: R11.2 Nausea with vomiting, unspecified (principal); R10.9 Unspecified abdominal pain; R05 Cough; B19.20 Unspecified viral hepatitis C without hepatic coma; Z72.0 Tobacco use
CPT/HCPCS: 74176; 80053; 80307; 81001; 84703; 85025; 87426; 96361; 96374; 99284; J7030; A4216; J2405

== ENCOUNTER 2021-03-31 20:10 | Emergency (ER) | payer MEDICAID, SELFPAY ==
[2021-03-31 20:11] VITALS: BP 154/98; PULSE 108; RESP 18; TEMP 36.6; O2SAT 100; BMI 23.8
--- NOTE | 2021-03-31 20:46 | CT_ITS ---
INDICATION: lower jaw infection EXAMINATION: CT Maxillofacial W/ Contrast Injection TECHNIQUE: Helically acquired images were obtained of the facial bones. A radiation dose optimization technique was used for this scan. IV Contrast dosage and agent: None. COMPARISON: None. FINDINGS: SOFT TISSUES: There is a irregular thick-walled fluid collection in the subcutaneous tissue anterior to the left mandibular angle measuring approximately 0.9 x 0.8 cm along with surrounding fat stranding. VISUALIZED PARANASAL SINUSES: Clear. VISUALIZED MASTOID AIR CELLS: Clear. FACIAL BONES, MANDIBLE AND TMJs: No displaced facial bone fracture. No lytic or blastic abnormality. VISUALIZED DENTITION: Multiple dental caries. There is a periapical lucency of the left mandibular first molar as well as right mandibular premolar. ORBITAL CONTENTS: Both globes, extraocular muscles and retrobulbar fat appear unremarkable. LYMPH NODES: Left level 2A lymphadenopathy measuring 1.[address]/Sinus/Facial Bone WITH Contras IMPRESSION: 9 mm left facial abscess. Left 1st mandibular molar and right mandibular premolar dental abscesses. Electronically Signed: Oli Quinteros MD at 22:50 EDT Tel , Service support ,
--- NOTE | 2021-03-31 20:54 | EX.ED.DYSGE1 ---
HPI History of Present Illness Chief Complaint: Abscess Informant: patient Onset/Context/Timing Onset: Yesterday Narrative Narrative: Presents increasing swelling left lower jaw since yesterday. States started as a small pimple, she tried squeezing it, there is minimal drainage. Increasing size since yesterday. Denies any dental pain. Denies fevers. Denies history of diabetes. States had abscess in the past in her buttocks region however not in the face. Reports history of hepatitis C, history of a renal mass. Denies any anti-coagulation. Denies any immunosuppressants. Prior similar symptoms: Yes [facility] Medical History (Updated 03/31/21 @ 23:[address] [place] DO) Hepatitis C Home Medications ondansetron 4 mg PO Q8H PRN PRN #10 tablet 01/12/21 [Rx Last Taken Unknown] clindamycin HCl 450 mg PO TID 10 Days #90 cap 03/31/21 [Rx Last Taken Unknown] Allergy/AdvReac Type Severity Reaction Status Date / Time No Known Allergies Allergy Verified 03/31/21 20:12 Social History Smoking Status: Current every day smoker tobacco type: cigarettes ROS ROS ED Constitutional Constitutional ED: Denies chills, fever(s) or sweats Eyes Eyes: Denies change in vision ENT ENT ED: Denies dysphagia or sore throat Cardiovascular Cardiovascular: Denies chest pain, leg edema, palpitations or racing heartbeat Respiratory/Chest Respiratory/Chest: Denies cough, dyspnea or dyspnea on exertion Gastrointestinal Gastrointestinal: Denies abdominal pain, diarrhea, nausea or vomiting Genitourinary Genitourinary ED: Denies dysuria, hematuria or urinary frequency Musculoskeletal Musculoskeletal: Denies back pain, extremity pain or neck pain Integumentary Reports other Details: Facial swelling ; Denies rash or wounds Neurologic Neurologic: Denies headache(s), paresthesias or weakness EXAM Physical Exam Const Vital Signs: 03/31/21 20:11 03/31/21 23:02 Temperature 97.9 F 98.9 F Temperature Source Temporal Temporal Pulse Rate 108 H 98 Respiratory Rate 18 18 Blood Pressure 154/98 H 132/98 H Blood Pressure Mean 116 109 Pulse Ox 100 100 Oxygen Delivery Method Room Air Room Air Positive well nourished and well developed General Appearance ED: well developed and NAD HEENT Reports moist mucous membranes HEENT Narrative: Significant facial swelling left lower mental extending to the mandibular region. There is submandibular lymphadenopathy. No dental pain, no sublingual edema. Airway patent. normocephalic and atraumatic Eyes PERRL, EOMs intact bilaterally and conjunctivae normal General Eye ED: Yes normal appearance of both eyes Neck no lymphadenopathy and supple General: Negative for tenderness Chest Wall Chest: Negative for tenderness Resp normal respiratory effort and normal air movement Effort and Inspection: symmetric chest movement; Negative for respiratory distress Cardio regular rate, regular rhythm and no murmurs Peripheral Pulses: pulses 2+ throughout GI normal to inspection, nondistended, normoactive bowel sounds and non-tender Palpation: Negative for guarding or rebound tenderness present Back/Spine no CVA tenderness and no thoracic nor lumbar tenderness Extremity normal to inspection General Extremety ED: Negative for edema or tenderness General Extremity: Negative for edema Neuro oriented x3 and no sensory deficits noted Sensorium / Orientation: awake and alert Skin Skin Narrative: See above MDM MDM MDM Narrative Medical decision making narrative: Patient afebrile however tachycardiac on presentation. With concerning infection of the facial region sepsis labs were obtained. However white count returned normal range, lactic acid at 1.2. She was started on Zosyn and vancomycin with concerning facial infection. CT scan facial region with IV contrast obtained per radiology reading concerns for first mandibular molar and right mandibular premolar dental abscesses. Patient history of hepatitis C from reported IV drug use in the past. She states she is not injected in years. She states she does still snort heroin. With progressive symptoms over the past day with findings of abscess of the facial region with dental involvement. Do feel she would benefit from hospitalization. Spoke with hospitalist, Dr. Mccormick, requesting specialist involvement to assist in follow as a consult. She evaluated the patient, did discuss with Dr. Ansari, who recommended ENT. Spoke with Dr. Walton, with concerning dental involvement states oral maxillary surgery would need to be involved in ENT for potential dental extraction. Attempted to get a hold of Dr. Bull is not on-call, there is no callback. Discussed with patient required plans to transfer to the facility with oral maxillary surgery. However she states she did not want to stay in the hospital and did not want to be transferred. She was alert and oriented x4 and capable of making decisions. She signed out AGAINST MEDICAL ADVICE. Discussed she can return anytime reevaluation. However she did not allow her vancomycin to be finished prior to being discharged. Prescription of clindamycin was sent to her pharmacy. Lab Data Labs: Laboratory Results - last 24 hr 03/31/21 03/31/21 03/31/21 21:02 21:02 21:02 WBC 10.2 RBC 5.11 Hgb 14.9 Hct 46.9 MCV 91.8 MCH 29.2 MCHC 31.8 L RDW Std Deviation 45.8 H RDW Coeff of Kaylynn 13.5 Plt Count 226 MPV 9.0 Immature Gran % (Auto) 0.400 Neut % (Auto) 76.3 H Lymph % (Auto) 15.2 L [place] % (Auto) 6.2 Eos % (Auto) 1.7 Baso % (Auto) 0.2 Absolute Neuts (auto) 7.8 H Absolute Lymphs (auto) 1.55 Nucleated RBC % 0 PT 11.8 INR 0.9 APTT 26.1 Sodium 137 Potassium 3.5 Chloride 99 Carbon Dioxide 32.0 Anion Gap 6 BUN 13 Creatinine 0.79 Estim Creat Clear Calc 74.87 Est GFR (MDRD) Af Amer 103 Est GFR (MDRD) Non-Af 85 BUN/Creatinine Ratio 16.4 Glucose 46 L Lactic Acid Calcium 9.2 Total Bilirubin 0.40 AST 34 ALT 65 H Alkaline Phosphatase 99 Total Protein 8.4 H Albumin 3.6 Globulin 4.8 H Albumin/Globulin Ratio 0.8 L 03/31/21 21:02 WBC RBC Hgb Hct MCV MCH MCHC RDW Std Deviation RDW Coeff of Kaylynn Plt Count MPV Immature Gran % (Auto) Neut % (Auto) Lymph % (Auto) [place] % (Auto) Eos % (Auto) Baso % (Auto) Absolute Neuts (auto) Absolute Lymphs (auto) Nucleated RBC % PT INR APTT Sodium Potassium Chloride Carbon Dioxide Anion Gap BUN Creatinine Estim Creat Clear Calc Est GFR (MDRD) Af Amer Est GFR (MDRD) Non-Af BUN/Creatinine Ratio Glucose Lactic Acid 1.2 Calcium Total Bilirubin AST ALT Alkaline Phosphatase Total Protein Albumin Globulin Albumin/Globulin Ratio Radiography Diagnostic Testing: Radiology Impression Facial/Sinus 03/31/21 20:46 IMPRESSION: 9 mm left facial abscess. Left 1st mandibular molar and right mandibular premolar dental abscesses. Electronically Signed: Oli Quinteros MD at 22:50 EDT Tel , Service support , Discharge Plan Triage Chief Complaint: Abscess ED Provider: [place] Dx/Rx/DC Orders Clinical Impression: Facial abscess, Dental abscess Instructions: Dental Abscess, ED Abscess Antibiotic Treatment Only, ED Cellulitis, Facial Prescriptions: New clindamycin HCl 150 mg capsule 450 mg PO TID 10 Days Qty: 90 RF: 0 No Action ondansetron 4 MG tablet 4 mg PO Q8H PRN PRN (Reason: Nausea) Qty: 10 RF: 0 Primary Care Provider: Care Physician,No Primary Referrals: Fiona Luis [NON-STAFF] - 1 Day Care Physician,No Primary [Primary Care Provider] - Disposition Disposition: Against Medical Advice
[2021-03-31 21:13] LABS: Absolute Lymphocyte Count 1.55 X10^3/uL (0.83-4.51); Absolute Neutrophil Count 7.8 X10^3/uL (2.0-7.7); Basophil# 0.02 X10^3/uL; Basophil% 0.2 % (0-1); Eosinophil# 0.17 X10^3/uL; Eosinophils% 1.7 % (0-5); Hematocrit 46.9 % (37-47); Hemoglobin 14.9 g/dL (12.0-15.0); Lymphocyte # 1.55 X10^3/ul (0.83-4.51); Lymphocyte % 15.2 % (19-41); Mean Corp Hgb Conc 31.8 g/dL (32-36); Mean Corpuscular Hgb 29.2 pg (27.0-32.0); Mean Corpuscular Volume 91.8 fL (81-99); Monocyte# 0.63 X10^3/uL; Monocyte% 6.2 % (0-10); NRBC Flagged by Analyzer 0 % (0-5); Neutrophil # 7.78 X10^3/uL (2.7-7.7); Neutrophil % 76.3 % (47-70); Platelet Count 226 K/mm3 (150-450); RBC Distribution Width CV 13.5 % (11.6-14.6); RBC Distribution Width SD 45.8 fl (35.1-43.9); Red Blood Count 5.11 M/mm3 (4.2-5.4); White Blood Count 10.2 K/mm3 (4.4-11.0)
[2021-03-31 21:29] LABS: ALB/GLOB Ratio 0.8 RATIO (0.9-2.4); AST(SGOT) 34 U/L (15-37); Alanine Aminotransfer ALT/SGPT 65 U/L (13-56); Albumin, Serum 3.6 g/dL (3.2-5.0); Alkaline Phosphatase 99 U/L (45-117); Anion Gap 6 (5-15); BUN 13 mg/dL (7-18); BUN/Creat Ratio 16.4 RATIO (10-20); Calcium,Total 9.2 mg/dL (8.5-10.1); Chloride 99 mmol/L (98-107); Creatinine, Serum 0.79 mg/dL (0.55-1.02); EST Glomerular Filtration Rate 85 mL/min (>60); Est Glom Filt Rate - Afr Amer 103 mL/min (>60); Estimated Creatinine Clearance 74.87 ml/min; Globulin 4.8 g/dL (2.2-4.2); Glucose 46 mg/dL (74-106); Potassium 3.5 mmol/L (3.5-5.1); Protein, Total 8.4 g/dL (6.4-8.2); Sodium Level 137 mmol/L (136-145)
[2021-03-31 21:30] LABS: International Normalized Ratio 0.9; Prothrombin Time (Protime)PT. 11.8 SECONDS (11.7-14.9)
[2021-03-31 21:31] LABS: Partial Thromboplast Time 26.1 Seconds (24.1-36.2)
[2021-03-31 21:38] LABS: Lactic Acid 1.2 mmol/L (0.4-1.9)
[2021-03-31] MEDS: 0.9% Normal Saline 1,000 ML 150 ML IV (21:44)
[2021-03-31] MEDS: Vancomycin IV 1,000 MG/200 ML BAG 200 MG IV (22:59)
[2021-03-31 23:02] VITALS: BP 132/98; PULSE 98; RESP 18; TEMP 37.2; O2SAT 100
--- NOTE | 2021-03-31 23:59 | ED.RN ---
pt would not stay to complete vancomycin infusion. pt left AMA. paperwork was signed and sent with pt.
== END 2021-03-31 23:58 | disposition left against medical advice (07) ==
PROVIDERS: Emergency Provider Emergency Medicine
DX: L02.01 Cutaneous abscess of face (principal); K04.7 Periapical abscess without sinus; B19.20 Unspecified viral hepatitis C without hepatic coma; Z53.21 Procedure and treatment not carried out due to patient leaving prior to being seen by health care provider; F11.90 Opioid use, unspecified, uncomplicated; F17.210 Nicotine dependence, cigarettes, uncomplicated
CPT/HCPCS: 36415; 70487; 80053; 83605; 85025; 85610; 85730; 87040; 96365; 96368; 99282; J7030; Q9967; A4216

== ENCOUNTER 2021-05-05 17:35 | Emergency (ER) | payer MEDICAID, SELFPAY ==
[2021-05-05 17:37] VITALS: BP 149/106; PULSE 112; RESP 18; TEMP 36.1; O2SAT 99; BMI 22.8
--- NOTE | 2021-05-05 18:11 | EX.ED.GENINJ ---
HPI History of Present Illness Chief Complaint: Laceration Informant: patient Onset/Context/Timing Onset: Today Current Severity: Moderate Maximum Severity: Moderate Narrative Narrative: Patient presents with a self-inflicted forearm laceration. Patient states that she cuts to release her feelings and anger. Today she felt that she cut too deep. She arrives to triage tearful stating that she does not want to . She does state that her last tetanus is less than 10 years ago. She is right-hand dominant. [facility] Medical History Hepatitis C Home Medications NK 05/05/21 [History Last Taken Unknown] Allergy/AdvReac Type Severity Reaction Status Date / Time No Known Allergies Allergy Verified 05/05/21 17:36 Social History Smoking Status: Current every day smoker tobacco type: cigarettes ROS ROS ED Constitutional Constitutional ED: Denies chills or fever(s) Eyes Eyes: Denies change in vision ENT ENT ED: Denies sore throat Cardiovascular Cardiovascular: Denies chest pain Respiratory/Chest Respiratory/Chest: Denies cough or dyspnea Gastrointestinal Gastrointestinal: Denies abdominal pain, diarrhea, nausea or vomiting Genitourinary Genitourinary ED: Denies dysuria Musculoskeletal Musculoskeletal: Denies back pain Integumentary Reports rash and other Details: Left forearm laceration Neurologic Neurologic: Denies headache(s) or weakness Psychiatric Psychiatric: Denies anxiety or depression Allergic/Immunologic Allergic/Immunologic ED: Denies urticaria EXAM Physical Exam Const Vital Signs: 05/05/21 17:37 Temperature 97 F L Temperature Source Temporal Pulse Rate 112 H Respiratory Rate 18 Blood Pressure 149/106 H Blood Pressure Mean 120 Pulse Ox 99 Positive well nourished and well developed General Appearance ED: well developed HEENT Reports normocephalic and head/scalp atraumatic Eyes PERRL and EOMs intact bilaterally Neck supple Chest Wall inspection of chest normal and palpation of chest normal Resp normal respiratory effort and clear to auscultation bilaterally Cardio regular rate and regular rhythm Back/Spine no CVA tenderness Extremity Extremity Narrative: 5 cm linear laceration to the volar left forearm. Neurovascularly intact. Neuro oriented x3 and no sensory deficits noted Sensorium / Orientation: alert Motor Exam: strength 5/5 throughout Psych mental status grossly normal PROC Procedures Lacerations Left forearm laceration: Length: 1.97 in Depth: Sub Q Shape: Linear Prep: Myah-[place]cora Laceration repair: Irrigated, Lidocaine and Local Number of Sutures/Stanley: 8 Suture Information: Ethilon, Simple and 5-0 MDM MDM MDM Narrative Medical decision making narrative: Left forearm laceration is anesthetized and sutured. Please see procedure note. Treatment and Re-Evaluation Comments:: Wound was cleansed and dressed following suture repair. I did asked the patient if she was interested in speaking with social work so that she can find other coping mechanisms to deal with her feelings. She is interested this and social work will be in to see the patient. Discharge Plan Triage Chief Complaint: Laceration ED Provider: Brianna Ledezma Dx/Rx/DC Orders Clinical Impression: Laceration Instructions: ED Laceration: All Closures Prescriptions: No Action NK RF: 0 Primary Care Provider: Care Physician,No Primary Referrals: Chandan Bernard MD [STAFF PHYSICIAN] - 10 Day for suture removal Care Physician,No Primary [Primary Care Provider] - Disposition Disposition: Home, Self Care
--- NOTE | 2021-05-05 18:20 | CM.ED ---
SW Note SW referral Source: MD DENTON reason: Mental Health MD said that patient had cut herself too deep and came to the ED for treatment. asked if patient wanted to speak to social welfare clerk and she said yes. CORRIE went and obtained paperwork about [facility] and went to speak to patient. said that patient did not wish to wait. RN provided patient with [facility] information. No further SW needs at this time. Plan: Provided patient with community resources Cindy ANGEL
== END 2021-05-05 18:24 | disposition home or self-care (01) ==
LOC: ED 18:24
PROVIDERS: Emergency Provider Emergency Medicine
DX: S51.812A Laceration without foreign body of left forearm, initial encounter (principal); X78.9XXA Intentional self-harm by unspecified sharp object, initial encounter; Y93.9 Activity, unspecified; Y92.9 Unspecified place or not applicable; F17.210 Nicotine dependence, cigarettes, uncomplicated
CPT/HCPCS: 12002; 99284

== ENCOUNTER 2021-07-20 20:41 | Observation (INO) | payer MEDICAID, SELFPAY ==
[2021-07-20 20:42] VITALS: BP 149/100; PULSE 107; RESP 18; TEMP 36.6; O2SAT 95; BMI 23.8
--- NOTE | 2021-07-20 21:10 | EX.ED.SAOD ---
HPI History of Present Illness Chief Complaint: Substance Abuse Informant: patient Associated Symptoms Associated Symptoms: Positive for diarrhea* and other: (abdominal cramping); Negative for vomiting*, fever* and rash* Narrative Narrative: Patient presenting requesting detox from methamphetamine and heroin. Last use of both was today, heroin earlier, methamphetamine only about 3 hours ago. Has been using both for 10 years, consistently for the past 2 years. Last detox was 2 months ago, was somewhere else. She denies any associated illness or injury recently. She injects both drugs, she denies any infected or uncomfortable injection sites except for her right neck which is improving, she states there is a small knot there. [facility] Medical History Hepatitis C Home Medications NK 05/05/21 [History Last Taken Unknown] Allergy/AdvReac Type Severity Reaction Status Date / Time No Known Allergies Allergy Verified 07/20/21 20:44 Social History (Updated 07/20/21 @ 21:[address] Kei Sim MD) Smoking Status: Current every day smoker tobacco type: cigarettes substance use type: heroin, IV drugs and methamphetamine ROS ROS ED Constitutional Constitutional ED: Reports chills; Denies fever(s) Eyes Eyes: Denies change in vision or diplopia ENT ENT ED: Denies rhinorrhea or sore throat Cardiovascular Cardiovascular: Denies chest pain or palpitations Respiratory/Chest Respiratory/Chest: Denies cough or dyspnea Gastrointestinal Gastrointestinal: Reports abdominal pain and diarrhea; Denies nausea or vomiting Genitourinary Genitourinary ED: Denies dysuria or hematuria Musculoskeletal Musculoskeletal: Denies back pain or neck pain Integumentary Reports other Details: sore lump right neck injection site ; Denies abscess or rash Neurologic Neurologic: Denies headache(s), paresthesias or weakness Psychiatric Psychiatric: Denies anxiety or suicidal thoughts EXAM Physical Exam Const Vital Signs: 07/20/21 20:42 07/20/21 21:42 07/20/21 22:03 Temperature 97.8 F Temperature Source Temporal Pulse Rate 107 H Respiratory Rate 18 16 16 Blood Pressure 149/100 H Blood Pressure Mean 116 Pulse Ox 95 Oxygen Delivery Method Room Air Positive well nourished and well developed General Appearance ED: well developed and NAD HEENT Reports moist mucous membranes normocephalic and atraumatic Eyes PERRL and EOMs intact bilaterally Neck full ROM and supple Neck Narrative: nontender SQ lump right lateral mid-neck, no abscess, fluctuance, infection Resp normal respiratory effort and clear to auscultation bilaterally Cardio regular rate, regular rhythm and no murmurs Rate: tachycardic GI non-tender and non-distended Auscultation: normoactive bowel sounds Palpation: soft Back/Spine no CVA tenderness General Back: other FROM Extremity normal to inspection General Extremety ED: Negative for edema, pulses abnormal or tenderness General Extremity: Negative for edema or pulses abnormal Neuro oriented x3, CN's II-XII intact bilaterally and no sensory deficits noted Sensorium / Orientation: awake and alert Motor Exam: strength 5/5 throughout Skin no rashes or lesions noted and no wounds MDM MDM MDM Narrative Medical decision making narrative: Patient is medically cleared for admission for detox. We are tight on beds, but we do have one for her. We attempted to look at other facilities but there are no other close facilities with available beds right now so we will admit the patient here. Of note, this patient screens negative for any Covid symptoms. She did have Covid in 2020, and since she had it she elected not to get vaccinated at this point. Lab Data Attestation: I reviewed the patient's lab results. Labs: Laboratory Results - last 24 hr 07/20/21 07/20/21 07/20/21 20:40 20:40 20:40 WBC 7.5 RBC 4.78 Hgb 13.8 Hct 42.9 MCV 89.7 MCH 28.9 MCHC 32.2 RDW Std Deviation 43.3 RDW Coeff of Kaylynn 13.1 Plt Count 210 MPV 9.2 Immature Gran % (Auto) 0.100 Neut % (Auto) 70.6 H Lymph % (Auto) 21.8 [place] % (Auto) 5.2 Eos % (Auto) 1.9 Baso % (Auto) 0.4 Absolute Neuts (auto) 5.3 Absolute Lymphs (auto) 1.64 Nucleated RBC % 0 Sodium Potassium Chloride Carbon Dioxide Anion Gap BUN Creatinine Estim Creat Clear Calc Est GFR (MDRD) Af Amer Est GFR (MDRD) Non-Af BUN/Creatinine Ratio Glucose Calcium Urine Test Urine Opiates Screen NEGATIVE Urine Methadone Screen NEGATIVE Ur Barbiturates Screen NEGATIVE Ur Phencyclidine Scrn NEGATIVE Ur Amphetamines Screen POSITIVE H U Methamphetamin-MDMA POSITIVE H U Benzodiazepines Scrn NEGATIVE Urine Cocaine Screen NEGATIVE U Cannabinoids Screen POSITIVE H Ur Drug Screen Comment Ethyl Alcohol 4.0 07/20/21 07/20/21 20:40 20:40 WBC RBC Hgb Hct MCV MCH MCHC RDW Std Deviation RDW Coeff of Kaylynn Plt Count MPV Immature Gran % (Auto) Neut % (Auto) Lymph % (Auto) [place] % (Auto) Eos % (Auto) Baso % (Auto) Absolute Neuts (auto) Absolute Lymphs (auto) Nucleated RBC % Sodium 138 Potassium 4.4 Chloride 101 Carbon Dioxide 35.0 H Anion Gap 2 L BUN 13 Creatinine 0.94 Estim Creat Clear Calc 62.92 Est GFR (MDRD) Af Amer 85 Est GFR (MDRD) Non-Af 70 BUN/Creatinine Ratio 13.8 Glucose 86 Calcium 9.3 Urine Test Negative Urine Opiates Screen Urine Methadone Screen Ur Barbiturates Screen Ur Phencyclidine Scrn Ur Amphetamines Screen U Methamphetamin-MDMA U Benzodiazepines Scrn Urine Cocaine Screen U Cannabinoids Screen Ur Drug Screen Comment Ethyl Alcohol Discharge Plan Triage Chief Complaint: Substance Abuse ED Provider: Kei Sim Dx/Rx/DC Orders Clinical Impression: Opiate dependence, Methamphetamine abuse Prescriptions: No Action NK RF: 0 Primary Care Provider: Care Physician,No Primary Referrals: Care Physician,No Primary [Primary Care Provider] - Disposition Disposition: Acute Care [facility]
[2021-07-20 21:15] LABS: Absolute Lymphocyte Count 1.64 X10^3/uL (0.83-4.51); Absolute Neutrophil Count 5.3 X10^3/uL (2.0-7.7); Basophil# 0.03 X10^3/uL; Basophil% 0.4 % (0-1); Eosinophil# 0.14 X10^3/uL; Eosinophils% 1.9 % (0-5); Hematocrit 42.9 % (37-47); Hemoglobin 13.8 g/dL (12.0-15.0); Lymphocyte # 1.64 X10^3/ul (0.83-4.51); Lymphocyte % 21.8 % (19-41); Mean Corp Hgb Conc 32.2 g/dL (32-36); Mean Corpuscular Hgb 28.9 pg (27.0-32.0); Mean Corpuscular Volume 89.7 fL (81-99); Mean Platelet Vol. 9.2 fl (6.2-12.0); Monocyte# 0.39 X10^3/uL; Monocyte% 5.2 % (0-10); NRBC Flagged by Analyzer 0 % (0-5); Neutrophil # 5.33 X10^3/uL (2.7-7.7); Neutrophil % 70.6 % (47-70); Platelet Count 210 K/mm3 (150-450); RBC Distribution Width CV 13.1 % (11.6-14.6); RBC Distribution Width SD 43.3 fl (35.1-43.9); Red Blood Count 4.78 M/mm3 (4.2-5.4); White Blood Count 7.5 K/mm3 (4.4-11.0)
[2021-07-20 21:19] LABS: Internal QC Validated? YES +Cl - CLEAR BKGD
[2021-07-20 21:20] LABS: Pregnancy, Urine Negative Negative
--- NOTE | 2021-07-20 21:22 | CM.ED ---
CORRIE Note Referral Source: Case Find Referral Reason: RAMP admission CORRIE met with patient. She reports she is here for detox. Patient reports using 1/2 gram of heroin a day with her last use of heroin being this morning. Patient reports use of meth, 1/2 gram a day, and the last use 3 hours ago. Patient said that she understands the RAMP program. Patient reports interest in the Suboxone/MAT program. Patient reports she was linked with but her case is now closed. CORRIE asked patient if she had any concerns and she said no. CORRIE called [facility] treatment Navigator. She was updated about patient's presentation to the ED and drug of choice. Tamika said that detox therapist will follow up with patient tomorrow. Blaise De La Rosa RN reported that beds are limited and could patient go to another facility for the same level of treatment. CORRIE spoke to patient. She said that her mom dropped her off in the ED. Patient said that she had no concerns regarding going to [place] except that she did not want her mom to drive her. Patient voiced she would be comfortable with her insurance provider providing for transport. CORRIE called Tamika and updated her that due to current hospital census this film writer is inquiring about detox at a facility similar to [facility] Ramp program. Tamika stated patient could go to [facility] to be medically cleared and then go to [place] for detox. CORRIE called [facility] and spoke to Provide a Ride and it would be up to 3 hours for patient to be picked up. campus supervisor Ryan called [facility] and was advised they had no beds. Blaise spoke to campus supervisorBERNADINE Puri and advised her of update. Patient will be admitted to RAMP. campus supervisor Ryan will update MD. CORRIE called Tamika from [facility] and advised that patient will stay here for treatment. CORRIE spoke to patient and advise that she will remain at [facility] for RAMP program. Plan: Admit to Ramp. Detox therapist will follow up with patient in the morning. Cindy ANGEL
[2021-07-20 21:40] LABS: Anion Gap 2 (5-15); BUN 13 mg/dL (7-18); BUN/Creat Ratio 13.8 RATIO (10-20); Calcium,Total 9.3 mg/dL (8.5-10.1); Chloride 101 mmol/L (98-107); Creatinine, Serum 0.94 mg/dL (0.55-1.02); EST Glomerular Filtration Rate 70 mL/min (>60); Est Glom Filt Rate - Afr Amer 85 mL/min (>60); Estimated Creatinine Clearance 62.92 ml/min; Glucose 86 mg/dL (74-106); Potassium 4.4 mmol/L (3.5-5.1); Sodium Level 138 mmol/L (136-145)
[2021-07-20 21:41] LABS: Amphetamine Urine VISTA POSITIVE (<1000 ng/mL); Barbiturate Urine VISTA NEGATIVE (< 200 ng/mL); Benzodiazepine Urine VISTA NEGATIVE (< 200 ng/mL); Cocaine Urine VISTA NEGATIVE (< 300 ng/mL); Ecstacy Urine VISTA POSITIVE (< 500 ng/mL); Methadone Urine VISTA NEGATIVE (< 300 ng/mL); PCP Urine VISTA NEGATIVE (< 25 ng/mL); THC Urine VISTA POSITIVE (< 50 ng/mL); Vista UDS pH Range 6
[2021-07-20 21:42] VITALS: RESP 16
[2021-07-20 22:03] VITALS: RESP 16
[2021-07-20 22:19] VITALS: BP 154/102; PULSE 95; RESP 18; TEMP 37.2; O2SAT 100
--- NOTE | 2021-07-20 22:34 | HP.PCM.HOS_ITS ---
HPI - General General Date of Admission: 07/20/21 Date of Service: 07/20/21 Chief Complaint: Acute Opiate Withdrawal HPI Narrative The patient is a 41 y/o F w/ PMHx: Polysubstance abuse w/ IVDA w/ Methamphetamine and Heroine using ~ 1/2 gm each daily, Hepatitis C, Anxiety and Depression, HTN off regimen, Tobacco use who presents to the [facility] ED on 07/20/21 w/ noted acute opiate withdrawal onset starting this evening following last dose early in the AM with abdominal pain/cramping, generalized body aches and pains, fatigue, restless leg, sweating/flushed sensation. Patient interested in attaining clean status. She notes she will be homeless in ~ 20 days as her mother is moving as well as her daughter. Work-up in the ED included T 98.9, heart rate 95, BP 154/102, respiratory rate 18, 100% on room air, CBC with WC 7.5, hemoglobin 13.8, platelet 210 without marked shift, BMP obtained only with carbon oxide 35, urine test negative, UDS with positive amphetamine, methamphetamine and cannabis, ethyl alcohol 4. [facility] Medical History Anxiety Depression Hepatitis C Kidney mass Methamphetamine abuse Opiate dependence Tobacco use Home Medications NK 05/05/21 [History Last Taken Unknown] Allergy/AdvReac Type Severity Reaction Status Date / Time No Known Allergies Allergy Verified 07/20/21 20:44 Family History (Updated 07/20/21 @ 23:[address] Lawanda Mccormick MD) Mother Heart disease Father Heart disease Surgical History (Updated 07/20/21 @ 23:18 by Ayaz Hernandez) H/O foot surgery H/O tubal ligation Hx of tonsillectomy Social History (Updated 07/20/21 @ 23:[address] Lawanda Mccormick MD) household members: other details: Currently lives with her mother/daughter, both moving, will be homeless. Smoking Status: Current every day smoker tobacco type: cigarettes Smoking packs per day: 0.5 Smoking cigarettes per day: 10.0 alcohol intake: never substance use type: heroin, IV drugs and methamphetamine ROS ROS Narrative Admission Review of Systems: CONSTITUTIONAL: No weight loss, fever, chills, + weakness or fatigue. HEENT: Eyes: No visual loss, blurred vision, double vision or yellow sclerae. Ears, Nose, Throat: No hearing loss, sneezing, congestion, runny nose or sore throat. SKIN: + injection track sanchez. CARDIOVASCULAR: No chest pain, chest pressure or chest discomfort, palpitations, edema, orthopnea, syncopal events. RESPIRATORY: No shortness of breath, cough or sputum, wheezing, hemoptysis. GASTROINTESTINAL: + anorexia, nausea without vomiting, abdominal discomfort, No diarrhea, melena, BRBPR. GENITOURINARY: No dysuria, frequency, urgency or retention. NEUROLOGICAL: No headache, dizziness, syncope, paralysis, ataxia, numbness or tingling in the extremities, focal weakness, change in bowel or bladder control, seizure. MUSCULOSKELETAL: + muscle, back pain, joint pain or stiffness. HEMATOLOGIC: No anemia, bleeding or bruising. LYMPHATICS: No enlarged nodes. No history of splenectomy. PSYCHIATRIC: + history of depression or anxiety. ENDOCRINOLOGIC: + reports of sweating, cold or heat intolerance. No polyuria or polydipsia. ALLERGIES: No history of asthma, hives, eczema or rhinitis. Vital Signs Vital Signs Vital Signs: 07/20/21 20:42 07/20/21 21:42 07/20/21 22:03 Temperature 97.8 F Temperature Source Temporal Pulse Rate 107 H Respiratory Rate 18 16 16 Blood Pressure 149/100 H Blood Pressure Mean 116 Pulse Ox 95 Oxygen Delivery Method Room Air 07/20/21 22:19 Temperature 98.9 F Temperature Source Oral Pulse Rate 95 Respiratory Rate 18 Blood Pressure 154/102 H Blood Pressure Mean 119 Pulse Ox 100 Oxygen Delivery Method Room Air Weight Weight: 130 lb Body Mass Index (BMI) 23.8 Physical Exam Narrative Physical Examination: General: Awake, alert, oriented x 3 and cooperative, seated upright in the ED bed, fatigued, restless. Skin: Normal color, normal turgor, no icterus, no cyanosis except for various staged track sanchez to extremities as well as neck even. HEENT: AT/NC, EOMI, PERRLA, dry MM, no carotid bruits or JVD noted. Lungs: Diminished, greater bases, moderate effort, no rales, ronchi or wheezing. Heart: Tachycardic with regular rhythm; no gallop, rub audible. Abdomen: Soft, mild generalized discomfort with palpation, no obvious distention, hyperactive bowel sounds, mild HM. Extremities: No cyanosis, clubbing, or edema. Neurological: Patient awake, alert, oriented as noted, cognitive function intact; pupils equally reactive to light and accommodation, cranial nerves II- XII grossly normal, moving all 4 extremities, no focal deficits, strength moderately global decrease secondary to acute presentation, restless, fatigued, frequently yawning. Psychiatric: Affect appears fatigued, restless, no acute evidence of depressive or anxiety feelings. Results Lab / Micro Data Result Diagrams: 07/20/21 20:40 07/20/21 20:40 Labs: Laboratory Results - last 24 hr 07/20/21 20:40: Ethyl Alcohol 4.0 07/20/21 20:40: Urine Opiates Screen NEGATIVE, Urine Methadone Screen NEGATIVE, Ur Barbiturates Screen NEGATIVE, Ur Phencyclidine Scrn NEGATIVE, Ur Amphetamines Screen POSITIVE H, U Methamphetamin-MDMA POSITIVE H, U Benzodiazepines Scrn NEGATIVE, Urine Cocaine Screen NEGATIVE, U Cannabinoids Screen POSITIVE H, Ur Drug Screen Comment 07/20/21 20:40: WBC 7.5, RBC 4.78, Hgb 13.8, Hct 42.9, MCV 89.7, MCH 28.9, MCHC 32.2, RDW Std Deviation 43.3, RDW Coeff of Kaylynn 13.1, Plt Count 210, MPV 9.2, Immature Gran % (Auto) 0.100, Neut % (Auto) 70.6 H, Lymph % (Auto) 21.8, [place] % (Auto) 5.2, Eos % (Auto) 1.9, Baso % (Auto) 0.4, Absolute Neuts (auto) 5.3, Absolute Lymphs (auto) 1.64, Nucleated RBC % 0 07/20/21 20:40: Sodium 138, Potassium 4.4, Chloride 101, Carbon Dioxide 35.0 H, Anion Gap 2 L, BUN 13, Creatinine 0.94, Estim Creat Clear Calc 62.92, Est GFR (MDRD) Af Amer 85, Est GFR (MDRD) Non-Af 70, BUN/Creatinine Ratio 13.8, Glucose 86, Calcium 9.3 07/20/21 20:40: Urine Test Negative Assessment & Plan Assessment/Plan (1) Opiate withdrawal: PLAN: The patient is a 41 y/o F w/ PMHx: Polysubstance abuse w/ IVDA w/ Methamphetamine and Heroine using ~ 1/2 gm each daily, Hepatitis C, Anxiety and Depression, HTN off regimen, Tobacco use who presents to the [facility] ED on 07/20/21 w/ noted acute opiate withdrawal onset. 1. Acute Opiate Withdrawal: Will admit to [facility], routine labs obtained in the ED however hepatic profile will be added as had not been obtained, will initiate and continue on protocol with tapering course of Subutex, as needed tylenol, ibuprofen, bowel regimen, gabapentin, Bentyl, Vistaril, methocarbamol, clonidine, PRN nightly trazodone for insomnia, IV fluids, IV antiemetics. Once patient clinically improved and completion of taper nearing will plan consultation with case management for transition to next level of rehabilitation care. 2. Polysubstance Abuse, IVDA, History of Hepatitis C, Chronic: Patient currently not candidate for hep C treatment currently as needs to be clean, sober x 6 months, documented attendance NA or AA meetings, counseling and ongoi ng negative drug screens. HIV, hepatitis panel to assess for co-infection pending. 3. Hypertension, untreated: Patient with known history of hypertension however she has not been on regimen, given evidence of elevated BPs above goal as well as on prior visits will initiate low-dose lisinopril and continue to monitor, as needed IV hydralazine. 4. Tobacco Abuse: Encouraged cessation, inpatient consultation per RT, NR if desired. 5. Anxiety and depression: Not on regimen, would benefit from outpatient evaluation and treatment is likely related to #1. 6. DVT prophylaxis: Low risk, encourage ambulation. Charges/Coding Visit Charges Inpatient E&M: 84911 Init Hosp L2
[2021-07-20 23:06] VITALS: BMI 23.7
[2021-07-20 23:08] VITALS: BP 147/109; PULSE 89; RESP 18; TEMP 37.2; O2SAT 100
[2021-07-21] MEDS: Ibuprofen 600 MG Tablet PO
[2021-07-21] MEDS: cloNIDine HCl 0.1 MG Tablet PO
[2021-07-21] MEDS: Lisinopril 5 MG Tablet PO ×2 (00:25→09:24)
[2021-07-21 00:37] LABS: AST(SGOT) 69 U/L (15-37); Alanine Aminotransfer ALT/SGPT 71 U/L (13-56); Albumin, Serum 3.4 g/dL (3.2-5.0); Alkaline Phosphatase 86 U/L (45-117); Bilirubin, Direct 0.08 mg/dL (0.00-0.30); Globulin 4.5 g/dL (2.2-4.2); Protein, Total 7.9 g/dL (6.4-8.2)
[2021-07-21 00:39] LABS: HIV - WCH Non-Reactive (Nonreactive)
[2021-07-21 03:08] VITALS: BP 111/76; PULSE 87; RESP 15; TEMP 36.7; O2SAT 96
[2021-07-21 07:32] VITALS: O2SAT 96
[2021-07-21 08:23] VITALS: BP 127/85; PULSE 97; RESP 16; TEMP 37.1; O2SAT 97
[2021-07-21] MEDS: hydrOXYzine PAM 25 MG Capsule 50 MG PO (08:30)
[2021-07-21] MEDS: Methocarbamol 750 MG Tablet 1500 MG PO ×2 (08:30→20:12)
[2021-07-21] MEDS: Buprenorphine HCl 2 MG TAB.SUBL SL ×2 (09:24→17:05)
--- NOTE | 2021-07-21 10:41 | PN.HOSP_ITS ---
Subjective Subjective Patient seen and examined. SHe is being managed for acute opioid withdrawal. She has no complaints, and review of systems is otherwise negative. Objective Data Objective Data Vital Signs: Vital Signs Temp Pulse Resp BP Pulse Ox 98.8 F 97 16 127/85 H 97 07/21/21 08:23 07/21/21 08:23 07/21/21 08:23 07/21/21 08:23 07/21/21 08:23 Oxygen Delivery Method Room Air Weight: 129 lb 13.636 oz Body Mass Index (BMI) 23.7 Intake & Output: Intake and Output for Last 24 Hours 07/19/21 07/20/21 07/21/21 23:59 23:59 23:59 Intake Total 550 / 550 Balance 550 / 550 Lab / Micro Data Result Diagrams: 07/20/21 20:40 07/20/21 20:40 Labs: Laboratory Results - last 24 hr 07/20/21 20:40: Ethyl Alcohol 4.0 07/20/21 20:40: Urine Opiates Screen NEGATIVE, Urine Methadone Screen NEGATIVE, Ur Barbiturates Screen NEGATIVE, Ur Phencyclidine Scrn NEGATIVE, Ur Amphetamines Screen POSITIVE H, U Methamphetamin-MDMA POSITIVE H, U Benzodiazepines Scrn NEGATIVE, Urine Cocaine Screen NEGATIVE, U Cannabinoids Screen POSITIVE H, Ur Drug Screen Comment 07/20/21 20:40: WBC 7.5, RBC 4.78, Hgb 13.8, Hct 42.9, MCV 89.7, MCH 28.9, MCHC 32.2, RDW Std Deviation 43.3, RDW Coeff of Kaylynn 13.1, Plt Count 210, MPV 9.2, Immature Gran % (Auto) 0.100, Neut % (Auto) 70.6 H, Lymph % (Auto) 21.8, [place] % (Auto) 5.2, Eos % (Auto) 1.9, Baso % (Auto) 0.4, Absolute Neuts (auto) 5.3, Absolute Lymphs (auto) 1.64, Nucleated RBC % 0 07/20/21 20:40: Sodium 138, Potassium 4.4, Chloride 101, Carbon Dioxide 35.0 H, Anion Gap 2 L, BUN 13, Creatinine 0.94, Estim Creat Clear Calc 62.92, Est GFR (MDRD) Af Amer 85, Est GFR (MDRD) Non-Af 70, BUN/Creatinine Ratio 13.8, Glucose 86, Calcium 9.3 07/20/21 20:40: Urine Test Negative 07/20/21 20:40: HIV 1&2 Antibody Non-Reactive 07/20/21 20:40: Total Bilirubin 0.50, Direct Bilirubin 0.08, AST 69 H, ALT 71 H, Alkaline Phosphatase 86, Total Protein 7.9, Albumin 3.4, Globulin 4.5 H Physical Exam Const alert and oriented x3 Exam Limitations: no limitations HEENT head/scalp atraumatic and moist oral mucous membranes Head and Scalp: normocephalic Eyes PERRL, EOMs intact bilaterally and conjunctivae normal Neck no lymphadenopathy Resp normal respiratory effort, no retractions, no use of accessory muscles and clear to auscultation bilaterally Cardio regular rate, regular rhythm, S1 normal heart sound, S2 normal heart sound and no murmurs GI normal to inspection, nondistended, normoactive bowel sounds, soft to palpation, non-tender and non-distended Extremity normal to inspection, full ROM and no clubbing, cyanosis or edema Peripheral Pulses: Yes pulses 2+ throughout Skin no rashes or lesions noted Neuro oriented x3 and CN's II-XII intact bilaterally Sensorium / Orientation: awake and alert Psych affect normal Assessment & Plan Assessment/Plan (1) Opiate withdrawal: PLAN: #Acute opioid withdrawal * on opioid withdrawal protocol with buprenorphine * monitor COWS score * on adjunctive meds for symptomatic relief. * DVT prophylaxis: low risk. encourage to ambulate. Disposition: wants to be discharged to an inpatient rehab facility upon discharge. Case management on board. Charges/Coding Visit Charges Inpatient E&M: 07273 Subs Hosp L2
--- NOTE | 2021-07-21 10:50 | ADDICTION ---
This resume writer met with PT to conduct ASAM, MSE, AUDIT, DUDIT assessments and to plan for d/c. PT A+Ox4 and participated actively. All assessments completed, faxed to [facility] and placed in PT's chart. PT plans to f/u with individual counselor at [facility] for follow-up counseling services. PT did not indicate a need for transportation post d/c from [facility].
[2021-07-21 14:57] VITALS: BP 110/78; PULSE 83; RESP 16; TEMP 36.7; O2SAT 99
[2021-07-21 20:05] VITALS: BP 101/46; PULSE 82; RESP 16; TEMP 36.9; O2SAT 96
[2021-07-21] MEDS: traZODone 100 MG Tablet PO ×2 (22:51)
[2021-07-22] MEDS: Buprenorphine HCl 2 MG TAB.SUBL SL ×3 (02:10→17:37)
[2021-07-22 02:13] VITALS: BP 98/57; PULSE 76; RESP 16; TEMP 37; O2SAT 95
[2021-07-22 07:35] VITALS: O2SAT 95
[2021-07-22] MEDS: Ibuprofen 600 MG Tablet PO ×2 (08:37→17:37)
[2021-07-22] MEDS: hydrOXYzine PAM 25 MG Capsule 50 MG PO ×2 (08:38→17:37)
[2021-07-22] MEDS: Methocarbamol 750 MG Tablet 1500 MG PO ×2 (08:38→17:37)
[2021-07-22] MEDS: Lisinopril 5 MG Tablet PO (08:39)
[2021-07-22 08:42] VITALS: BP 98/60; PULSE 80; RESP 16; TEMP 36.7; O2SAT 99
--- NOTE | 2021-07-22 08:57 | PCS.PANDOC ---
PANDEMIC DOCUMENTATION INITIATED: Date: 05/15/2021 Time: 190
--- NOTE | 2021-07-22 11:09 | PN.HOSP_ITS ---
Subjective Subjective Patient seen and examined. She had an uneventful night and had no complaints. She inquired about removal of wax in her left ear and I advised her that she would need follow-up with ENT on outpatient basis for that. She has remained hemodynamically stable and review of systems otherwise negative. Objective Data Objective Data Vital Signs: Vital Signs Temp Pulse Resp BP Pulse Ox 98.0 F 80 16 98/60 99 07/22/21 08:42 07/22/21 08:42 07/22/21 08:42 07/22/21 08:42 07/22/21 08:42 Oxygen Delivery Method Room Air Weight: 129 lb 13.636 oz Body Mass Index (BMI) 23.7 Intake & Output: Intake and Output for Last 24 Hours 07/20/21 07/21/21 07/22/21 23:59 23:59 23:59 Intake Total 1650 / 1650 Balance 1650 / 1650 Lab / Micro Data Result Diagrams: 07/20/21 20:40 07/20/21 20:40 Physical Exam Const alert and oriented x3 Exam Limitations: no limitations HEENT head/scalp atraumatic and moist oral mucous membranes Head and Scalp: normocephalic Eyes PERRL, EOMs intact bilaterally and conjunctivae normal Neck no lymphadenopathy Resp normal respiratory effort, no retractions, no use of accessory muscles and clear to auscultation bilaterally Cardio regular rate, regular rhythm, S1 normal heart sound, S2 normal heart sound and no murmurs GI normal to inspection, nondistended, normoactive bowel sounds, soft to palpation, non-tender and non-distended Extremity normal to inspection, full ROM and no clubbing, cyanosis or edema Peripheral Pulses: Yes pulses 2+ throughout Skin no rashes or lesions noted Neuro oriented x3 and CN's II-XII intact bilaterally Sensorium / Orientation: awake and alert Psych affect normal Assessment & Plan Assessment/Plan (1) Opiate withdrawal: PLAN: #Acute opioid withdrawal * on opioid withdrawal protocol with buprenorphine * monitor COWS score * on adjunctive meds for symptomatic relief. * DVT prophylaxis: low risk. encourage to ambulate. Disposition: says she will go to [facility] facility after being discharged home. Charges/Coding Visit Charges Inpatient E&M: 01417 Subs Hosp L2
[2021-07-22 17:40] VITALS: BP 122/84; PULSE 74; RESP 17; TEMP 36.9; O2SAT 100
[2021-07-22 22:16] VITALS: BP 94/60; PULSE 71; RESP 15; TEMP 37.1; O2SAT 96
[2021-07-22] MEDS: traZODone 100 MG Tablet PO (22:21)
[2021-07-23] MEDS: Buprenorphine HCl 2 MG TAB.SUBL SL ×2 (01:50→09:24)
[2021-07-23 02:00] VITALS: BP 103/71; PULSE 77; RESP 15; TEMP 37; O2SAT 94
[2021-07-23 07:27] VITALS: O2SAT 94
[2021-07-23] MEDS: Ibuprofen 600 MG Tablet PO (09:24)
[2021-07-23] MEDS: Lisinopril 5 MG Tablet PO (09:25)
[2021-07-23] MEDS: hydrOXYzine PAM 25 MG Capsule 50 MG PO (09:25)
[2021-07-23] MEDS: Methocarbamol 750 MG Tablet 1500 MG PO (09:25)
--- NOTE | 2021-07-23 11:06 | DS.PCM_ITS ---
Providers Date of Admission: 07/20/21 Primary Care Physician: Gudelia Primary Care Phys Reason For Visit: ACUTE OPIATE WITHDRAWL Diagnosis Discharge Diagnosis (1) Opiate withdrawal: Status: Acute Code(s): F11.23 - Opioid dependence with withdrawal Medications at Discharge Home Medications NK 05/05/21 Hospital Course Operations None Procedures None Summary of Care Provided Minutes Spent on Discharge: 40 Hospital Course: Patient is a 41-year-old female with a past medical history which includes polysubstance abuse including IV methamphetamine and heroin abuse, hepatitis C, anxiety and depression as well as hypertension and nicotine dependence. She was admitted through the ED on 07/20/2021 for acute opioid withdrawal with assisted abdominal pain and cramping, generalized body aches and pains and fatigue as well as restless legs and increased sweating. Your urine drug screen was positive for amphetamine, methamphetamine and cannabis. Serum a lcohol level was 4. She was admitted and managed for acute opioid withdrawal. She was started on opiate withdrawal protocol with buprenorphine. Patient 3-day detox process well and his symptoms completely resolved. Patient was discharged home on 07/23/2021 and is to follow-up with 180 to arrange for inpatient rehab. Patient seen and examined prior to discharge. She had no complaints and was ready to be discharged. Review of symptoms otherwise negative. Labs and vitals reviewed. Her medications reviewed and reconciled. Physical Exam Const alert and oriented x3 General Appearance: cooperative and comfortable Exam Limitations: no limitations HEENT normocephalic, head/scalp atraumatic and moist oral mucous membranes Eyes PERRL, EOMs intact bilaterally and conjunctivae normal Neck no lymphadenopathy Resp normal respiratory effort, no retractions, no use of accessory muscles and clear to auscultation bilaterally Cardio regular rate, regular rhythm, S1 normal heart sound, S2 normal heart sound and no murmurs GI normal to inspection, nondistended, normoactive bowel sounds, soft to palpation, non-tender and non-distended Extremity normal to inspection, full ROM and no clubbing, cyanosis or edema Skin no rashes or lesions noted Neuro oriented x3 and CN's II-XII intact bilaterally Sensorium / Orientation: awake and alert Psych affect normal Weight / BMI Weight Weight: 129 lb 13.636 oz Body Mass Index (BMI) 23.7 ABG / Lab / Microbiology Data Result Diagrams: 07/20/21 20:40 07/20/21 20:40 D/C Instructions Discharge Diet: No restrictions Discharge Activity: Return to Normal Activity Call your doctor if you observe: Fever of 101 or Higher and Shortness of breath Meaningful Use Info Meaningful Use Diagnoses (Choose all that apply): None applicable Discharge Plan Admission Admit Date/Time: 07/20/21 22:34 Primary Reason for Your Visit: acute opioid withdrawal Attending Provider: Cierra Kaur Primary Care Provider: Care Physician,No Primary Instructions Patient Instructions: ED Opioid Withdrawal Discharge Orders/Prescriptions Prescriptions: No Action NK RF: 0 Referrals / Follow Up: Care Physician,No Primary [Primary Care Provider] - Disposition Disposition (needs filled in before D/C Order can be placed): Home, Self Care Charges/Coding Visit Charges Inpatient E&M: 72523 Disch Hosp
[2021-07-23 15:13] VITALS: BP 93/50; PULSE 82; RESP 16; TEMP 36.6; O2SAT 96
== END 2021-07-23 15:46 | disposition home or self-care (01) ==
LOC: ED 22:24 → MS3 22:49
PROVIDERS: Admitting Provider Family Medicine; Emergency Provider Emergency Medicine; Visit Provider Student in an Organized Health Care Education/Training Program
DX: F11.23 Opioid dependence with withdrawal (principal); F15.10 Other stimulant abuse, uncomplicated; I10 Essential (primary) hypertension; F17.210 Nicotine dependence, cigarettes, uncomplicated; B18.2 Chronic viral hepatitis C
CPT/HCPCS: 36415; 80048; 80076; 80307; 81025; 82077; 85025; 86703; 86704; 86705; 86706; 86707; 86803; 87340; 87350; 99283; 99406; H0012

== ENCOUNTER 2021-08-26 16:32 | Emergency (ER) | payer MEDICAID, SELFPAY ==
[2021-08-26 16:33] VITALS: BP 173/105; PULSE 105; RESP 16; TEMP 36.6; O2SAT 100; BMI 24.1
[2021-08-26 16:48] VITALS: RESP 16
--- NOTE | 2021-08-26 16:57 | EX.ED.UPPERE ---
HPI History of Present Illness Chief Complaint: Upper Extremity Injury Informant: patient Narrative Narrative: Patient presents with pain and swelling to the right forearm for the last 3 days, the swelling went all the way down to her fingers and she states it was so swollen she could not remove her rings. However for the last day she is put an Alec wrap around her forearm, she states now the swelling is basically gone. It is still sore in her dorsal proximal forearm however, it is worse with movement and better with rest. She denies any chest pain or shortness of breath, fevers, chills, redness, streaking. She states she was concerned because she also shoot dope in her right hand regularly. She is right-hand dominant and states she has been moving lately so doing a lot of packing and lifting boxes, moving them around. PFSH PFSH Medical History Anxiety Depression Hepatitis C Kidney mass Methamphetamine abuse Opiate dependence Tobacco use Home Medications NK 05/05/21 [History Last Taken Unknown] Allergy/AdvReac Type Severity Reaction Status Date / Time No Known Allergies Allergy Verified 08/26/21 16:34 Family History Mother Heart disease Father Heart disease Surgical History H/O foot surgery H/O tubal ligation Hx of tonsillectomy Social History household members: other details: Currently lives with her mother/daughter, both moving, will be homeless. Smoking Status: Current every day smoker tobacco type: cigarettes alcohol intake: never substance use type: heroin, IV drugs and methamphetamine ROS ROS ED Constitutional Constitutional ED: Denies chills or fever(s) Cardiovascular Cardiovascular: Denies chest pain or palpitations Respiratory/Chest Respiratory/Chest: Denies cough or dyspnea Gastrointestinal Gastrointestinal: Denies abdominal pain, diarrhea, nausea or vomiting Musculoskeletal Musculoskeletal: Reports as per HPI and extremity pain; Denies back pain, joint pain, joint stiffness, joint swelling or neck pain Integumentary Denies abscess, Abrasions, rash or wounds Neurologic Neurologic: Denies paresthesias or weakness EXAM Physical Exam Const Vital Signs: 08/26/21 16:33 08/26/21 16:48 Temperature 97.8 F Temperature Source Temporal Pulse Rate 105 H Respiratory Rate 16 16 Blood Pressure 173/105 H Blood Pressure Mean 127 Pulse Ox 100 Oxygen Delivery Method Room Air Positive well nourished and well developed General Appearance ED: well developed and NAD Neck full ROM, no lymphadenopathy and supple Chest Wall inspection of chest normal and palpation of chest normal Chest Narrative: No axillary lymphadenopathy or tenderness Resp normal respiratory effort, normal air movement, no use of accessory muscles and clear to auscultation bilaterally Cardio regular rate, regular rhythm and no murmurs Back/Spine normal ROM and normal to inspection Extremity normal to inspection, full ROM and no pedal edema Extremity Narrative: Mild local swelling and tenderness to the main muscle body area of the extensor musculature in the dorsal right proximal forearm. The common tendon at the lateral epicondyle is nontender. There is no other bony tenderness of the elbow, forearm, wrist. Patient is able to fully range fingers and wrist without any difficulty. Passively ranging does not cause any major problems including with passively stretching those muscles. All compartments are nice and soft and nondistended. There is no abnormal skin abnormalities/discoloration. There is no epitrochlear lymphadenopathy/tenderness. No abscesses. No palpable cords throughout the right upper extremity. Neuro oriented x3, no focal motor deficits and no sensory deficits noted Sensorium / Orientation: alert Psych mental status grossly normal and thought process normal Skin no wounds Skin Narrative: No right upper extremity erythema, lymphangitis, abscess, only lesions present are small noninfected nontender injection sites at the dorsal right wrist/hand. Rashes: no rashes MDM MDM MDM Narrative Medical decision making narrative: Patient presents when ultrasound is not available to rule out DVT. She states that her entire right forearm, wrist, hand, fingers were all very edematous but it is basically completely better now. A DVT could cause that, and an Alec wrap would very unlikely make it resolve. There is no sign of any infection. She has painless range of motion throughout the wrist and hand/fingers, making pyomyositis very unlikely here especially with inspection being extremely unremarkable. Therefore I do not think she has an infection, there is no epitrochlear or axillary lymphadenopathy. We discussed signs and symptoms of infection and reasons to return, but for now we are going to schedule her for an outpatient DVT ultrasound to be obtained soon as possible and she is amenable to that plan. It is certainly possible that this was simply a musculoskeletal overuse condition and the condition is improving since she has been resting for the past 2 days and she is in agreement with that possibility as well. Discharge Plan Triage Chief Complaint: Upper Extremity Injury ED Provider: Kei Sim Dx/Rx/DC Orders Clinical Impression: Muscle strain of right forearm Instructions: ED Bandage Elastic Wrap, ED Muscle Strain, Extremity Prescriptions: No Action NK RF: 0 Primary Care Provider: Care Physician,No Primary Referrals: Fiona Luis [NON-STAFF] - 3-5 Days if not improving Care Physician,No Primary [Primary Care Provider] - Activity Restrictions/Additional Instructions: See the attached document regarding the phone number to call if you need to change your ultrasound appointment Disposition Disposition: Home, Self Care
--- NOTE | 2021-08-27 09:34 | ED.RN ---
ANGELI FROM [facility] CALLED PT TO SCHEDULE HER UPPER EXTREMITY DOPPLER. PT REFUSED STATING IT WASN'T BOTHERING HER NOW AND SHE WOULD TELL THEM AT REHAB IF IT STARTED TO BOTHER HER AGAIN
== END 2021-08-26 17:14 | disposition home or self-care (01) ==
LOC: ED 17:12
PROVIDERS: Emergency Provider Emergency Medicine
DX: S56.911A Strain of unspecified muscles, fascia and tendons at forearm level, right arm, initial encounter (principal); X58.XXXA Exposure to other specified factors, initial encounter; Y93.9 Activity, unspecified; Y92.9 Unspecified place or not applicable; F17.210 Nicotine dependence, cigarettes, uncomplicated
CPT/HCPCS: 99282

== ENCOUNTER 2022-03-25 09:18 | Inpatient (IN) | payer MEDICAID, SELFPAY ==
[2022-03-25 09:19] VITALS: BP 144/110; PULSE 98; RESP 16; TEMP 36.7; O2SAT 99; BMI 31.1
--- NOTE | 2022-03-25 09:43 | EDS_ITS ---
HPI History of Present Illness Chief Complaint: Substance Abuse Informant: patient Narrative Narrative: Patient comes in requesting detox. Last detox was back in July. She states she injects heroin and meth. Heroin causes her most of the problems. She last used about 24 hours ago. She currently has a lot of myalgias from withdrawal. She is not having diarrhea. No runny nose. Mild anxiety. She has never had a seizure. She mostly injects in her neck. She denies ever having infectious complications from injecting though. She denies any recent fevers chills. No physical complaints other than the myalgias. Past medical history includes high blood pressure Medications include amlodipine hydrochlorothiazide and Mobic No known drug allergies Surgeries include toe fracture, tubal ligation and tonsils. Drug use as above. Denies significant alcohol use. PFSH PFSH Medical History Anxiety Depression Hepatitis C Kidney mass Methamphetamine abuse Opiate dependence Tobacco use Home Medications NK 05/05/21 [History Last Taken Unknown] Allergy/AdvReac Type Severity Reaction Status Date / Time No Known Allergies Allergy Verified 08/26/21 16:34 Family History Mother Heart disease Father Heart disease Surgical History H/O foot surgery H/O tubal ligation Hx of tonsillectomy Social History household members: other details: Currently lives with her mother/daughter, both moving, will be homeless. Smoking Status: Current every day smoker tobacco type: cigarettes alcohol intake: never substance use type: heroin, IV drugs and methamphetamine ROS ROS ED Constitutional Constitutional ED: Denies chills, fever(s), sweats or weight loss Eyes Eyes: Denies change in vision ENT ENT ED: Denies rhinorrhea Cardiovascular Cardiovascular: Denies chest pain or palpitations Respiratory/Chest Respiratory/Chest: Denies cough or dyspnea Gastrointestinal Gastrointestinal: Denies abdominal pain or diarrhea Genitourinary Genitourinary ED: Denies dysuria Musculoskeletal Musculoskeletal: Reports myalgias Integumentary Denies abscess Neurologic Neurologic: Denies paresthesias or weakness Psychiatric Psychiatric: Reports anxiety Endocrine Endocrinology: Denies polydipsia or polyuria Hematologic/Lymphatic Hematologic/Lymphatic: Denies easy bleeding or easy bruising Allergic/Immunologic Allergic/Immunologic ED: Denies urticaria EXAM Physical Exam Const Vital Signs: 03/25/22 09:19 Temperature 98.0 F Temperature Source Temporal Pulse Rate 98 Respiratory Rate 16 Blood Pressure 144/110 H Blood Pressure Mean 121 Pulse Ox 99 Positive well nourished and well developed General Appearance ED: well developed HEENT Reports moist mucous membranes Eyes EOMs intact bilaterally Eyes Narrative: Pupils are about 3 mm and react Neck no lymphadenopathy Neck Narrative: Patient does have spots that are consistent with injection sites at the base of both sides of her neck. I do not see signs of abscess. No erythema. Lymph Lymphatic: no lymphadenopathy noted Resp normal respiratory effort and clear to auscultation bilaterally Cardio regular rate and regular rhythm GI soft to palpation and non-tender Back/Spine no CVA tenderness Extremity General Extremety ED: Negative for edema or tenderness General Extremity: Negative for edema Neuro oriented x3 Psych mental status grossly normal Psych Narrative: Mildly agitated and anxious. Skin Skin Narrative: Neck skin changes as above. No diffuse rashes. MDM MDM MDM Narrative Medical decision making narrative: I discussed case with hospitalist. We will send off requested blood work. This is pending at this time. Patient's had tubal ligation and I think she is low chance of being . Plan will be admission for further management of opioid addiction and detox. Discharge Plan Dx/Rx/DC Orders Clinical Impression: Heroin abuse, Methamphetamine abuse, Desire for detoxification Disposition Disposition: Acute Care [facility]
--- NOTE | 2022-03-25 09:58 | PCM.HP.STD ---
HPI - General General Date of Admission: 03/25/22 Date of Service: 03/25/22 Chief Complaint: Request for medical stabilization from acute opioid withdrawal HPI Narrative PAYTON TITUS, is a 42 F who presents for medical stabilization from acute opioid withdrawal. Patient admits to injecting 1/2 gram of heroin daily, mostly to areas around the neck. She complains of feeling restless, achy, denies any nausea or vomiting. Vitals in ED showed blood pressure 144/110, heart rate 98, SPO2 99% on room air, temperature 98.2 F, respiratory 16. Admitting blood work showed unremarkable CBCD and CMP. Urine tox was pending [facility] Medical History Anxiety Depression Hepatitis C Kidney mass Methamphetamine abuse Opiate dependence Tobacco use Home Medications NK 05/05/21 [History Last Taken Unknown] Allergy/AdvReac Type Severity Reaction Status Date / Time No Known Allergies Allergy Verified 08/26/21 16:34 Family History Mother Heart disease Father Heart disease Surgical History H/O foot surgery H/O tubal ligation Hx of tonsillectomy Social History household members: other details: Currently lives with her mother/daughter, both moving, will be homeless. Smoking Status: Current every day smoker tobacco type: cigarettes alcohol intake: never substance use type: heroin, IV drugs and methamphetamine ROS ROS Narrative Constitutional: Reports: Malaise, Weakness, Fatigue. Denies: Anorexia, Chills, Fever, Night Sweats, Weight Change Eyes: Denies: Blurred vision, Cataracts, Conjunctivae Inflammation, Pain, Redness, Vision Change HEENT: Denies: Difficulty Hearing, Difficulty Swallowing, Head Aches, Hearing Changes, Sinus Congestion, Sinus Drainage Cardiovascular: Denies: Chest Pain, Orthopnea, Palpitations Respiratory: Denies: Cough, Shortness of breath at rest, Sputum production Gastrointestinal: Denies: Abdominal Pain, Nausea, Vomiting Genitourinary: Denies: Dysuria Musculoskeletal: Denies: Joint Pain, Joint stiffness, Joint swelling, Joint Tenderness Skin: Denies: Rash, Wounds Neurological: Denies: Numbness, Tingling, Focal weakness Vital Signs Vital Signs Vital Signs: 03/25/22 09:19 Temperature 98.0 F Temperature Source Temporal Pulse Rate 98 Respiratory Rate 16 Blood Pressure 144/110 H Blood Pressure Mean 121 Pulse Ox 99 Weight Weight: 77.111 kg Body Mass Index (BMI) 31.1 Physical Exam Narrative Physical exam: General: Alert, Oriented x3, Cooperative,looks unwell HEENT: Atraumatic Oral: Moist Mucosa Neck: Supple Lungs: Clear to auscultation Cardiovascular: HS I+II, regular, no murmurs Abdomen: Bowel Sounds Present, Soft, Non Tender Extremities: No edema Skin:erythematous rash, track sanchez, healed needle sanchez on neck Neurological: Grossly intact Psych/Mental Status: Appropriate Results Lab / Micro Data Result Diagrams: 03/25/22 10:15 03/25/22 10:15 Assessment & Plan Assessment/Plan (1) Heroin abuse: (2) Acute opioid withdrawal: PLAN: Plan 1. Acute opioid withdrawal, in known heroin abuse patient CINA score is 4, Continue on Subutex withdrawal protocol 2. Uncontrolled BP, likely related to #1, will continue to monitor. 3. Nicotine dependence, advised to quit, on replacement. 4. Chronic Hep C, not on treatment 5. DVT prophylaxis- low risk, early ambulation recommended. Charges/Coding Visit Charges Inpatient E&M: 12238 Subs Hosp L2
[2022-03-25 10:22] LABS: Absolute Lymphocyte Count 2.24 X10^3/uL (0.83-4.51); Absolute Neutrophil Count 3.8 X10^3/uL (2.0-7.7); Basophil# 0.03 X10^3/uL; Basophil% 0.4 % (0-1); Differential Indicated SCAN CRITERIA MET; Eosinophil# 0.34 X10^3/uL; Hematocrit 41.9 % (37-47); Hemoglobin 13.9 g/dL (12.0-15.0); Lymphocyte # 2.24 X10^3/ul (0.83-4.51); Lymphocyte % 33.2 % (19-41); Mean Corp Hgb Conc 33.2 g/dL (32-36); Mean Corpuscular Volume 90.5 fL (81-99); Mean Platelet Vol. 9.5 fl (6.2-12.0); Monocyte# 0.37 X10^3/uL; Monocyte% 5.5 % (0-10); NRBC Flagged by Analyzer 0 % (0-5); Neutrophil # 3.75 X10^3/uL (2.7-7.7); Neutrophil % 55.6 % (47-70); POSITIVE MORPHOLOGY YES; Platelet Count 182 K/mm3 (150-450); RBC Distribution Width CV 13.4 % (11.6-14.6); Red Blood Count 4.63 M/mm3 (4.2-5.4); White Blood Count 6.8 K/mm3 (4.4-11.0)
[2022-03-25 10:26] LABS: Internal QC Validated? YES +Cl - CLEAR BKGD; Pregnancy, Serum, hCG Quali. NEGATIVE Negative
[2022-03-25 10:38] LABS: ALB/GLOB Ratio 0.8 RATIO (0.9-2.4); AST(SGOT) 45 U/L (15-37); Alanine Aminotransfer ALT/SGPT 33 U/L (13-56); Albumin, Serum 3.1 g/dL (3.2-5.0); Alkaline Phosphatase 65 U/L (45-117); Anion Gap 6 (5-15); BUN 7 mg/dL (7-18); BUN/Creat Ratio 8.2 RATIO (10-20); Calcium,Total 8.5 mg/dL (8.5-10.1); Chloride 105 mmol/L (98-107); Creatinine, Serum 0.86 mg/dL (0.55-1.02); EST Glomerular Filtration Rate 78 mL/min (>60); Est Glom Filt Rate - Afr Amer 94 mL/min (>60); Estimated Creatinine Clearance 68.09 ml/min; Globulin 3.9 g/dL (2.2-4.2); Glucose 87 mg/dL (74-106); Potassium 3.5 mmol/L (3.5-5.1); Sodium Level 139 mmol/L (136-145)
[2022-03-25 10:43] LABS: Alcohol, Blood (Medical)-Serum < 3.0 mg/dL
[2022-03-25 10:46] VITALS: BP 153/106; PULSE 78; RESP 18; TEMP 36.8; O2SAT 96
[2022-03-25 10:51] LABS: Atypical Lymphocyte 1+ %
[2022-03-25 11:24] VITALS: BMI 31.1
[2022-03-25 11:33] VITALS: BP 133/93; PULSE 82; RESP 18; TEMP 36.7; O2SAT 100
[2022-03-25] MEDS: Methocarbamol 750 MG Tablet 1500 MG PO ×2 (12:27→20:00)
[2022-03-25] MEDS: Gabapentin 300 MG Capsule PO (12:27)
[2022-03-25] MEDS: Buprenorphine HCl 2 MG TAB.SUBL SL ×2 (12:27→19:59)
[2022-03-25 12:31] LABS: Amphetamine Urine VISTA POSITIVE (<1000 ng/mL); Barbiturate Urine VISTA NEGATIVE (< 200 ng/mL); Benzodiazepine Urine VISTA NEGATIVE (< 200 ng/mL); Cocaine Urine VISTA NEGATIVE (< 300 ng/mL); Ecstacy Urine VISTA POSITIVE (< 500 ng/mL); Methadone Urine VISTA NEGATIVE (< 300 ng/mL); PCP Urine VISTA NEGATIVE (< 25 ng/mL); THC Urine VISTA POSITIVE (< 50 ng/mL); Vista UDS pH Range 6
[2022-03-25 16:00] VITALS: BP 139/102; PULSE 77; RESP 18; TEMP 36.6; O2SAT 98
[2022-03-25] MEDS: Ibuprofen 600 MG Tablet PO (19:59)
[2022-03-25 20:00] VITALS: BP 139/102; PULSE 79; RESP 16; TEMP 37.2; O2SAT 94
[2022-03-25] MEDS: cloNIDine HCl 0.1 MG Tablet PO (20:00)
[2022-03-25] MEDS: traZODone 100 MG Tablet PO (20:00)
[2022-03-26] VITALS: BP 136/98; PULSE 85; RESP 16; TEMP 36.7; O2SAT 100
[2022-03-26] MEDS: hydrOXYzine PAM 25 MG Capsule 50 MG PO ×2 (00:14→09:27)
[2022-03-26] MEDS: Gabapentin 300 MG Capsule PO (00:14)
[2022-03-26] MEDS: Acetaminophen 500 MG Tablet PO (00:14)
[2022-03-26 04:00] VITALS: BP 122/82; PULSE 81; RESP 16; TEMP 36.6; O2SAT 98
[2022-03-26] MEDS: Buprenorphine HCl 2 MG TAB.SUBL SL ×3 (04:13→20:07)
--- NOTE | 2022-03-26 07:21 | PN.HOSP_ITS ---
Subjective Subjective Patient is a 42-year-old lady with history of chronic p.o. dependence admitted with acute opioid withdrawal Objective Data Objective Data Vital Signs: Vital Signs Temp Pulse Resp BP Pulse Ox 97.8 F 81 16 122/82 H 98 03/26/22 04:00 03/26/22 04:00 03/26/22 04:00 03/26/22 04:00 03/26/22 04:00 Oxygen Delivery Method Room Air Weight: 77.111 kg Body Mass Index (BMI) 31.1 Lab / Micro Data Result Diagrams: 03/25/22 10:15 03/25/22 10:15 Labs: Laboratory Results - last 24 hr 03/25/22 10:15: WBC 6.8, RBC 4.63, Hgb 13.9, Hct 41.9, MCV 90.5, MCH 30.0, MCHC 33.2, RDW Std Deviation 45.0 H, RDW Coeff of Kaylynn 13.4, Plt Count 182, MPV 9.5, Immature Gran % (Auto) 0.300, Neut % (Auto) 55.6, Lymph % (Auto) 33.2, [place] % (Auto) 5.5, Eos % (Auto) 5.0, Baso % (Auto) 0.4, Absolute Neuts (auto) 3.8, Absolute Lymphs (auto) 2.24, Nucleated RBC % 0, Atypical Lymphocytes 1+ 03/25/22 10:15: Sodium 139, Potassium 3.5, Chloride 105, Carbon Dioxide 28.0, Anion Gap 6, BUN 7, Creatinine 0.86, Estim Creat Clear Calc 68.09, Est GFR (MDRD) Af Amer 94, Est GFR (MDRD) Non-Af 78, BUN/Creatinine Ratio 8.2 L, Glucose 87, Calcium 8.5, Total Bilirubin 0.30, AST 45 H, ALT 33, Alkaline Phosphatase 65, Total Protein 7.0, Albumin 3.1 L, Globulin 3.9, Albumin/Globulin Ratio 0.8 L 03/25/22 10:15: Ethyl Alcohol < 3.0 03/25/22 10:15: Serum , Qual NEGATIVE 03/25/22 11:50: Urine Opiates Screen NEGATIVE, Urine Methadone Screen NEGATIVE, Ur Barbiturates Screen NEGATIVE, Ur Phencyclidine Scrn NEGATIVE, Ur Amphetamines Screen POSITIVE H, MDMA (Ecstasy) Screen POSITIVE H, U Benzodiazepines Scrn NEGATIVE, Urine Cocaine Screen NEGATIVE, U Cannabinoids Screen POSITIVE H, Ur Drug Screen Comment Physical Exam Narrative GENERAL: cooperative HEENT: Atraumatic; EYES; Anicteric, Normal Conjunctiva NECK; supple, normal thyroid, RESPIRATORY: Diminished to auscultation CARDIOVASCULAR: Regular S1 S2, GI: soft, normoactive bowel sounds, : No Renal angle tenderness; EXTREMITIES: No edema, no clubbing, MUSCULOSKELETAL: no muscle wasting NEURO: Awake; no lateralizing signs. SKIN: No Rash PSYCH; Flat affect Assessment & Plan Assessment/Plan (1) Heroin abuse: (2) Acute opioid withdrawal: PLAN: Plan Patient is a 42-year-old lady with history of chronic p.o. dependence admitted with acute opioid withdrawal 1. Acute opiate withdrawal ? Patient has been admitted to regular nursing floor being managed with Subutex taper 2. Tobacco dependence - Counseled on cessation, offered nicotine patch for tobacco cravings 3. Elevated blood pressure on admission ? Patient blood pressure appears to have stabilized 4. Chronic Hep C, not on treatment; patient to follow-up with primary care provider for treatment or referral following discharge 5. DVT prophylaxis - low risk, early ambulation recommended. Charges/Coding Visit Charges Inpatient E&M: 34364 Subs Hosp L2
[2022-03-26 08:00] VITALS: BP 109/79; PULSE 81; RESP 16; TEMP 36.2; O2SAT 98
[2022-03-26] MEDS: Dicyclomine 10 MG Capsule 20 MG PO (09:27)
[2022-03-26] MEDS: Methocarbamol 750 MG Tablet 1500 MG PO (09:27)
--- NOTE | 2022-03-26 11:02 | ADDICTION ---
TW met with pt to complete ASAM, AUDIT, DUDIT, MSE, and to begin d/c planning. TW inquired about further treatment upon release from detox. Pt stated [facility] is treatment, it's not just housing, you have it all wrong. You have it backwards. Pt was unwilling to discuss any other treatment options. TW provided education on [facility], which pt became defensive and upset about. Pt stated [facility] will come to get her when she is done with detox. She requested no further information from TW at this time.
[2022-03-26 14:00] VITALS: BP 131/80; PULSE 70; RESP 16; TEMP 36.6; O2SAT 96
[2022-03-26] MEDS: traZODone 100 MG Tablet PO (20:07)
[2022-03-26] MEDS: Ibuprofen 600 MG Tablet PO (20:07)
[2022-03-26 20:13] VITALS: BP 137/90; PULSE 80; RESP 16; TEMP 36.6; O2SAT 96
[2022-03-27] MEDS: Buprenorphine HCl 2 MG TAB.SUBL SL (03:42)
[2022-03-27 03:48] VITALS: BP 117/70; PULSE 74; RESP 16; TEMP 36.8; O2SAT 100
--- NOTE | 2022-03-27 07:44 | DCINST_ITS ---
Discharge Instructions Diet Discharge Diet: No restrictions Activity Discharge Activity: May Not Drive Weight Bearing Status: Weight bearing as tolerated Dressing / Incision Call your doctor if you observe: Fever of 101 or Higher, Coldness, Increased Pain, Numbness or Tingling, Change in Color, Inability to urinate, Inability to have a bowel movement, Using more than 1 pad per hour, Shortness of breath, Dizziness, Fainting spells, Swelling in the ankles, Chest pain, Prolonged hiccupping, Increased palpitations (irregular heartbeat), Calf discomfort and Uncontrolled pain Follow Up Care Test Results: Test results from this visit will be discussed in further detail at your follow- up appointment, if applicable. Discharge Plan Admission Admit Date/Time: 03/25/22 09:56 Primary Reason for Your Visit: Acute opioid withdrawal syndrome Attending Provider: Miguel Sahni Primary Care Provider: Care Physician,No Primary Consulting Providers: Virginia Bolaños David Discharge Orders/Prescriptions Prescriptions: No Action NK Referrals / Follow Up: Care Physician,No Primary [Primary Care Provider] - Disposition Disposition (needs filled in before D/C Order can be placed): Home, Self Care
--- NOTE | 2022-03-27 07:44 | PCM.DC.SUM ---
Providers Date of Admission: 03/25/22 Date of Discharge: 03/27/22 Primary Care Physician: No Primary Care Phys Reason For Visit: ACUTE OPIOID WITHDRAWAL Diagnosis Discharge Diagnosis (1) Heroin abuse: Status: Acute Code(s): F11.10 - Opioid abuse, uncomplicated (2) Acute opioid withdrawal: Status: Acute Code(s): F11.23 - Opioid dependence with withdrawal Medications at Discharge Home Medications NK 05/05/21 Hospital Course Summary of Care Provided Hospital Course: Patient is a 42-year-old lady with history of chronic opioid dependence admitted with acute opioid withdrawal 1.? Acute opiate withdrawal syndrome with history of chronic opioid use, dependence and tolerance: ? Patient has been admitted to regular nursing floor being managed with Subutex scheduled and then taper along with other supportive medications as needed for control of symptoms. 2.? Tobacco dependence - Counseled on cessation, nicotine patch. 3.? Elevated blood pressure on admission ? Patient blood pressure was controlled. 4. Chronic Hep C, not on treatment; patient to follow-up with primary care provider for treatment or referral following discharge 5. DVT prophylaxis - low risk, early ambulation recommended. Physical Exam Narrative Patient has court date tomorrow and wants to go home. I gave her the option for staying to complete her treatment but she has court hearing tomorrow for child posessesion. General: Alert, Oriented x3, Cooperative HEENT: Atraumatic, PERRLA, EOMI, Normocephalic Oral: No Gingival or Mucosal Lesions/ Ulcerations Neck: Supple, No JVD, Negative Carotid Bruits Lungs: Air entry diminished in bilateral lung bases. No crepitation/rhonchi Cardiovascular: Regular rate, Regular Rhythm, Normal S1, Normal S2, No murmurs Abdomen: Bowel Sounds Present, Soft, Non Tender, Non-Distended : No renal angle tenderness. No suprapubic tenderness. Extremities: No edema, Capillary Refill Less than 3 Seconds Skin: No rashes, No breakdown Musculoskeletal: No Tenderness to Palpation of Joints or Extremities Neurological: Cranial nerves II-XII grossly intact, DTR 2+/4 and Symmetrical, Neuro grossly intact Psych/Mental Status: Normal Affect, Appropriate. Weight / BMI Weight Weight: 170 lb Body Mass Index (BMI) 31.1 ABG / Lab / Microbiology Data Result Diagrams: 03/25/22 10:15 03/25/22 10:15 D/C Instructions Discharge Diet: No restrictions Weight Bearing Status: Weight bearing as tolerated Call your doctor if you observe: Fever of 101 or Higher, Coldness, Increased Pain, Numbness or Tingling, Change in Color, Inability to urinate, Inability to have a bowel movement, Using more than 1 pad per hour, Shortness of breath, Dizziness, Fainting spells, Swelling in the ankles, Chest pain, Prolonged hiccupping, Increased palpitations (irregular heartbeat), Calf discomfort and Uncontrolled pain Meaningful Use Info Meaningful Use Diagnoses (Choose all that apply): None applicable Discharge Plan Admission Admit Date/Time: 03/25/22 09:56 Primary Reason for Your Visit: Acute opioid withdrawal syndrome Attending Provider: Miguel Sahni Primary Care Provider: Care Physician,No Primary Consulting Providers: Virginia Bolaños ; Manuel Fonseca Discharge Orders/Prescriptions Prescriptions: No Action NK Referrals / Follow Up: Care Physician,No Primary [Primary Care Provider] - Disposition Disposition (needs filled in before D/C Order can be placed): Home, Self Care Charges/Coding Visit Charges Inpatient E&M: 39666 Disch Hosp
[2022-03-27 08:30] VITALS: BP 146/100; PULSE 91; RESP 17; TEMP 36.7; O2SAT 96
[2022-03-27] MEDS: Gabapentin 300 MG Capsule PO (08:41)
== END 2022-03-27 12:07 | disposition home or self-care (01) | DRG 773 ==
LOC: ED 09:54 → MS3 10:22
PROVIDERS: Admitting Provider Internal Medicine; Emergency Provider Emergency Medicine; Visit Provider Internal Medicine
DX: F11.23 Opioid dependence with withdrawal (principal); B18.2 Chronic viral hepatitis C; F15.10 Other stimulant abuse, uncomplicated; R03.0 Elevated blood-pressure reading, without diagnosis of hypertension
CPT/HCPCS: 36415; 80053; 80307; 82077; 84703; 85025; 99283; 99406

== ENCOUNTER → 2022-05-29 | Outpatient (CLI) | payer MEDICAID, SELFPAY ==
[2022-05-29 16:36] LABS: ALB/GLOB Ratio 0.9 RATIO (0.9-2.4); AST(SGOT) 17 U/L (15-37); Alanine Aminotransfer ALT/SGPT 23 U/L (13-56); Albumin, Serum 3.5 g/dL (3.2-5.0); Alkaline Phosphatase 67 U/L (45-117); Anion Gap 4 (5-15); BUN 17 mg/dL (7-18); BUN/Creat Ratio 21.4 RATIO (10-20); Calcium,Total 9.2 mg/dL (8.5-10.1); Chloride 106 mmol/L (98-107); Cholesterol 151 mg/dL (200); EST Glomerular Filtration Rate 85 mL/min (>60); Est Glom Filt Rate - Afr Amer 102 mL/min (>60); Glucose 77 mg/dL (74-106); High Density Lipoprotein 53 mg/dL; Potassium 3.2 mmol/L (3.5-5.1); Protein, Total 7.5 g/dL (6.4-8.2); Sodium Level 142 mmol/L (136-145); T4 Free Direct 0.72 ng/dL (0.76-1.46); Thyroid Stim Hormone (TSH) 2.74 uIU/mL (0.358-3.74); Triglycerides 107 mg/dL; Very Low Density Lipoprotein 21 mg/dL (5-40)
[2022-05-30 08:54] LABS: Hepatitis C Antibody Preliminary Reactive (Nonreactive)
[2022-05-31 21:07] LABS: HCV Quant. RNA PCR HCV Not Detected IU/mL (.)
== END | disposition home or self-care (01) ==
LOC: BIMLAB 14:30
PROVIDERS: PCP Internal Medicine; Visit Provider Internal Medicine
DX: B19.20 Unspecified viral hepatitis C without hepatic coma (principal); I10 Essential (primary) hypertension; K52.9 Noninfective gastroenteritis and colitis, unspecified
CPT/HCPCS: 36415; 80053; 80061; 84439; 84443; 86803; 87522

== ENCOUNTER → 2022-05-30 | Outpatient (CLI) | payer MEDICAID, SELFPAY | END | disposition home or self-care (01) | LOC: LABSPEC 08:13 | PROVIDERS: PCP Internal Medicine; Visit Provider Internal Medicine | DX: K52.9 Noninfective gastroenteritis and colitis, unspecified (principal) | CPT/HCPCS: 87493 ==

== ENCOUNTER → 2022-07-03 | Outpatient (CLI) | payer MEDICAID, SELFPAY ==
[2022-07-11 10:08] LABS: HPV Genotype 16, Aptima Negative (Negative)
[2022-07-11 11:27] LABS: HPV APTIMA, High Risk Positive (Negative); HPV Genotype 18,45 Aptima Negative (Negative)
== END | disposition home or self-care (01) ==
LOC: LABSPEC 13:46
PROVIDERS: PCP Internal Medicine; Visit Provider Obstetrics & Gynecology
DX: Z01.419 Encounter for gynecological examination (general) (routine) without abnormal findings (principal)
CPT/HCPCS: 87624; 88175; G0145

== ENCOUNTER 2022-07-18 13:30 | Outpatient (RCR) | payer MEDICAID, SELFPAY ==
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
--- NOTE | 2022-07-18 14:29 | HP.PTDCSUM ---
It has been my pleasure to treat PAYTON TITUS referred by Dr. Sen Abdullahi MD, with the diagnosis of CERVICALALGIA ,CHRONIC PAIN for a total of 7 visit(s). Discharge Date: 07/18/22 Please see the following information for a summary of their discharge status. Subjective: Getting better. I don't hurt like I did when I started. Less intyense pain, Intermittent 3/10 this week and worse with activitiy. Getting stronger. Has HEp with band to continue. To doctor O in July. Left Neck Pain Intensity (Out of 10): 1 % Improvement: 50 Objective/Function: Full aROM c/s without pain today. Full UE aROM with 4/5 strength in shoulder elevation. Decent posture noted. Desires to cotninue on her own via HEP and f/u with doctor in a few weeks. Goal 1:: I with HEP Goal Progress: Goal Met Goal 2:: Patient to demonstrate 50% improvement with decrease pain and improved function Goal Progress: Goal Met Goal 3:: Patient to improve cervical ROM for function of recovery to turn neck when driving Goal Progress: Goal Met Goal 4:: Patient to improve neck oswestry score by 5 points to improve QOL and function Goal Progress: Goal Met Goal 5:: Patient improve soft tissue limitations to improve cervical ROM Goal Progress: Goal Met Plan: d/c to HEP If there are questions or concerns regarding this patient's physical therapy, please feel free to call me at [phone]. Thank you for the referral of this patient. Sincerely, Victor Hugo Gonzales, DPT, OCS, CSCS Balance/Gait/Functional tests - Balance/Special Test Scores Oswestry Neck Score: 8
== END 2022-07-18 14:34 | disposition home or self-care (01) ==
LOC: PT 13:30
PROVIDERS: PCP Internal Medicine; Referring Provider Internal Medicine; Visit Provider Internal Medicine
DX: M54.9 Dorsalgia, unspecified (principal); G89.29 Other chronic pain
CPT/HCPCS: 97012; 97110; 97140; 97161; 97164

== ENCOUNTER 2022-08-16 15:26 | Outpatient (CLI) | payer MEDICAID, SELFPAY ==
--- NOTE | 2022-08-16 15:28 | BI_ITS ---
MAMMOGRAPHY - BILATERAL SCREENING REASON FOR EXAM: Female, 42 years old. Routine annual screening examination. PERTINENT HISTORY: Grandmother with breast cancer. TECHNIQUE: Digital bilateral breast katrina (3D mammographic acquisition) in the CC and MLO projections. 2-D mediolateral oblique (MLO) and craniocaudad (CC) views of both breasts were obtained. CAD: Full Field Digital Mammography with Computer Added Detection was performed. COMPARISON: None. Baseline examination. FINDINGS: Breast Composition: The breasts are heterogeneously dense, which may obscure small masses. There are no dominant masses or suspicious calcifications. Small benign-appearing bilateral axillary No other significant abnormalities are identified. BI/SCRN MAMM (CAD)W/KATRINA BILAT IMPRESSION: Negative screening mammogram. Yearly followup mammogram recommended. (A) ASSESSMENT CATEGORY: BIRADS Category 2: Benign. A letter regarding these results will be sent to the patient by the facility within 30 days. Approximately 10% of breast cancers are not detected by mammography. A normal mammogram should not delay biopsy of a clinically suspicious abnormality. [id number] Electronically Signed: Jluis Mcknight MD at 8:10 EST ,
== END 2022-08-16 23:59 | disposition home or self-care (01) ==
LOC: OPBI 15:26
PROVIDERS: PCP Internal Medicine; Referring Provider Obstetrics & Gynecology; Visit Provider Obstetrics & Gynecology
DX: Z12.31 Encounter for screening mammogram for malignant neoplasm of breast (principal); Z80.3 Family history of malignant neoplasm of breast
CPT/HCPCS: 77063; 77067

== ENCOUNTER 2022-08-30 15:39 | Outpatient (CLI) | payer MEDICAID, SELFPAY ==
[2022-08-30 17:36] LABS: ALB/GLOB Ratio 0.9 RATIO (0.9-2.4); AST(SGOT) 18 U/L (15-37); Alanine Aminotransfer ALT/SGPT 24 U/L (13-56); Albumin, Serum 3.7 g/dL (3.2-5.0); Alkaline Phosphatase 64 U/L (45-117); Anion Gap 6 (5-15); BUN 15 mg/dL (7-18); BUN/Creat Ratio 19.5 RATIO (10-20); Chloride 106 mmol/L (98-107); Creatinine, Serum 0.77 mg/dL (0.55-1.02); EST Glomerular Filtration Rate 88 mL/min (>60); Est Glom Filt Rate - Afr Amer 106 mL/min (>60); Glucose 93 mg/dL (74-106); Potassium 4.5 mmol/L (3.5-5.1); Protein, Total 7.7 g/dL (6.4-8.2); Sodium Level 139 mmol/L (136-145)
== END 2022-08-30 23:59 | disposition home or self-care (01) ==
LOC: BIMLAB 15:39
PROVIDERS: PCP Internal Medicine; Referring Provider Internal Medicine; Visit Provider Internal Medicine
DX: I10 Essential (primary) hypertension (principal)
CPT/HCPCS: 36415; 80053

== ENCOUNTER → 2022-11-09 | Outpatient (CLI) | payer MEDICAID, SELFPAY ==
--- NOTE | 2022-11-09 08:11 | US_ITS ---
STUDY: ABDOMINAL ULTRASOUND - RIGHT UPPER QUADRANT REASON FOR VISIT: Female, 42 years old hx hep C, elastography -- RUQ . History of prior partial right nephrectomy. TECHNIQUE: Ultrasound evaluation of the right upper quadrant was performed with real-time and static leonard-scale imaging. TECHNICAL QUALITY: Adequate. COMPARISON: Comparison is made with prior CT scan of the abdomen and pelvis dated 01/12/2021. FINDINGS: Liver: The liver measures 15.4 cm. There is normal echogenicity of the liver. The bile ducts are within normal limits. There is hepatic color flow. The direction of portal flow is hepatopetal. There is a 1.6 cm x 1.9 cm x 1.6 cm slightly echogenic nodule in the inferior aspect of the left lobe of the liver. This most likely represents a small hemangioma. Gallbladder: Normal distended gallbladder. The gallbladder wall measures 3 mm. There is a negative sonographic Lopez''s sign. There is no pericholecystic fluid. There are no gallstones. Small gallbladder polyp is seen. Common Bile Duct (C.B.D.): The common bile duct measures 6 mm. Pancreas: Normal size of the head, body and tail of the pancreas. There is normal echogenicity of the pancreas. There is no demonstrated pancreatic mass or cyst. Right Kidney: Normal size of the right kidney. The right kidney measures 10.4 cm x 5.2 cm x 5.4 cm. Normal renal cortex. The right cortex measures 1.9 cm. There is no demonstrated renal mass or cyst. There is no right hydronephrosis. US/Abdomen Limited IMPRESSION: 1.6 cm x 1.9 cm x 1.6 cm slightly echogenic nodule in the inferior aspect of the left lobe of the liver suggestive of a small hemangioma. Small gallbladder polyp. Electronically Signed: Jluis Mcknight MD at 10:18 EST ,
--- NOTE | 2022-11-09 08:11 | US_ITS ---
STUDY: ABDOMINAL ULTRASOUND - ELASTOGRAPHY REASON FOR VISIT: Female, 42 years old. History of hepatitis C. TECHNIQUE: Liver stiffness measurements were obtained on a Kongregate RS 85 ultrasound machine using a CA 1-7 probe following the SRU guidelines. 3 measurements were obtained using a 2-D-SWE method. The IQR/M was 14% suggesting a quality data set. TECHNICAL QUALITY: Adequate. COMPARISON: Comparison is made with prior study done earlier in the day. FINDINGS: Liver: There is no demonstrated mass lesion. Median liver stiffness measured 22 kPa. US/Elastography Parenchyma/Organ IMPRESSION: Liver stiffness measures 22 kPa compatible with F3-F4 (Moderate to severe liver fibrosis) Metavir score. Electronically Signed: Jluis Mcknight MD at 10:20 EST ,
[2022-11-09 09:17] LABS: Absolute Lymphocyte Count 1.92 X10^3/uL (0.83-4.51); Absolute Neutrophil Count 2.6 X10^3/uL (2.0-7.7); Basophil# 0.02 X10^3/uL; Basophil% 0.4 % (0-1); Eosinophil# 0.18 X10^3/uL; Eosinophils% 3.6 % (0-5); Hematocrit 42.2 % (37-47); Hemoglobin 13.3 g/dL (12.0-15.0); Lymphocyte # 1.92 X10^3/ul (0.83-4.51); Lymphocyte % 38.2 % (19-41); Mean Corp Hgb Conc 31.5 g/dL (32-36); Mean Corpuscular Hgb 28.6 pg (27.0-32.0); Mean Corpuscular Volume 90.8 fL (81-99); Mean Platelet Vol. 9.7 fl (6.2-12.0); Monocyte# 0.32 X10^3/uL; Monocyte% 6.4 % (0-10); NRBC Flagged by Analyzer 0 % (0-5); Neutrophil # 2.56 X10^3/uL (2.7-7.7); Platelet Count 204 K/mm3 (150-450); RBC Distribution Width CV 13.3 % (11.6-14.6); RBC Distribution Width SD 44.9 fl (35.1-43.9); Red Blood Count 4.65 M/mm3 (4.2-5.4)
[2022-11-09 09:52] LABS: ALB/GLOB Ratio 0.9 RATIO (0.9-2.4); AST(SGOT) 17 U/L (15-37); Alanine Aminotransfer ALT/SGPT 16 U/L (13-56); Albumin, Serum 3.5 g/dL (3.2-5.0); Alkaline Phosphatase 72 U/L (45-117); Anion Gap 6 (5-15); BUN 15 mg/dL (7-18); BUN/Creat Ratio 21.1 RATIO (10-20); CRP 6.76 mg/L (0.0-3.0); Calcium,Total 8.9 mg/dL (8.5-10.1); Chloride 107 mmol/L (98-107); Creatinine, Serum 0.71 mg/dL (0.55-1.02); EST Glomerular Filtration Rate 96 mL/min (>60); Erythrocyte Sedimentation Rate 19 mm/hr (0-30); Est Glom Filt Rate - Afr Amer 116 mL/min (>60); Ferritin 20 ng/mL (8-252); Globulin 4.1 g/dL (2.2-4.2); Glucose 87 mg/dL (74-106); LDH 169 U/L (84-246); Potassium 3.7 mmol/L (3.5-5.1); Protein, Total 7.6 g/dL (6.4-8.2); Sodium Level 140 mmol/L (136-145)
[2022-11-09 09:55] LABS: Hemoglobin A1c 5.3 % (3.8-5.6)
[2022-11-09 10:19] LABS: HIV - WCH Non-Reactive (Nonreactive)
[2022-11-12 13:10] LABS: Anti-Centromere B Ab <0.2 AI (0.0-0.9); Anti-Chromatin <0.2 AI (0.0-0.9); Anti-Jo <0.2 AI (0.0-0.9); Anti-Scleroderma-70 AB <0.2 AI (0.0-0.9); RNP Ab <0.2 AI (0.0-0.9); SJOGREN'S Anti-SS-A test < 0.2 AI (0.0-0.9); SJOGREN'S Anti-SS-B test < 0.2 AI (0.0-0.9); Smith Ab <0.2 AI (0.0-0.9)
[2022-11-12 23:16] LABS: Anti-Mitochondrial AB <20.0 Units (0.0-20.0); Anti-dsDNA Ab 1 IU/mL (0-9)
== END | disposition home or self-care (01) ==
PROVIDERS: PCP Internal Medicine; Referring Provider Nurse Practitioner Adult Health; Visit Provider Nurse Practitioner Adult Health
DX: Z86.19 Personal history of other infectious and parasitic diseases (principal); K74.00 Hepatic fibrosis, unspecified; K82.4 Cholesterolosis of gallbladder; N63.0 Unspecified lump in unspecified breast; D18.00 Hemangioma unspecified site
CPT/HCPCS: 36415; 76705; 76981; 80053; 80074; 82105; 82140; 82164; 82390; 82525; 82728; 83010; 83036; 83516; 83615; 85025; 85610; 85652; 86140; 86225; 86235; 86256; 86703

== ENCOUNTER → 2022-11-30 | Outpatient (CLI) | payer MEDICAID, SELFPAY ==
[2022-11-30] VITALS (8 sets, daily range): BP systolic 122–148; BP diastolic 75–97; PULSE 65–75; RESP 16–18; TEMP 36.9–37; O2SAT 95–100; BMI 31.1
--- NOTE | 2022-11-30 | LIV_PTH ---
PATIENT: PAYTON TITUS LOC: [place] U#:[id number] AGE/SX: 42/F ROOM: RE11/30/[address]: JAMEY Irizarry : 1980 BED: DIS: 11/30/2022 SPEC #: [id number] RECD: 11/30/22 11:04 STATUS: PETER OLGA #: [id number] CHAUNCEY: 11/30/22 00:[address]: Aarti Caldwell NP DEPT: SURGICAL PATHOLOGY RECD BY: Bruce Mathews ENTERED: 11/30/22 11:05 SP TYPE: LIVER RES OTHR DR: Dr. Sen Abdullahi MD Tissues: Liver, NOS Procedures: PAS with Diastase (control) Trichrome (control) Special Stain Group II PAS Stain (control) Surgery Specimen Level V Retic (control) Iron Stain (control) HEADER OPERATION: CT-guided liver biopsy PRE-OP DIAGNOSIS: Fibrosis TISSUE SUBMITTED: Liver 18-gauge x3 MICROSCOPIC DIAGNOSIS Liver, CT-guided core biopsy: Consistent with chronic hepatitis, grade I, stage I. See microscopic description and comment. Leelee 12/03/2022 COMMENT Correlation with clinical, radiologic findings, laboratory findings and appropriate follow up are necessary. MICROSCOPIC DESCRIPTION Slides are reviewed. The specimen shows liver parenchymal tissue with preserved lobular architecture. Significant lobular inflammation is not seen. Portal area shows mild chronic inflammation. Focal minimal interface inflammation is noted. Iron stain shows absent iron. Reticulin stain shows normal hepatic architecture. Trichrome stain does not show increased portal or periportal fibrosis. PAS stains with and without diastase do not show any abnormal accumulation of protein. All stains are performed with appropriate matched controls. GROSS DESCRIPTION Received in fixative is one container labeled with the patient's name and designated liver. The specimen consists of multiple elongated fragments of daley soft tissue that in aggregate measure 1.8 x 0.3 x 0.1 cm. The specimen is totally submitted in one cassette. / ARUNA:sabrina 11/30/2022 TC:3 CPT: 71592, 81115 x5
[2022-11-30 07:59] LABS: Platelet Count 193 K/mm3 (150-450)
--- NOTE | 2022-11-30 08:01 | CT_ITS ---
PROCEDURE: CT DIRECTED CORE LIVER BIOPSY INDICATION: Female, 42 years old. Liver fibrosis 22kpa on elastography, hx hep c PHYSICIAN: Dr. Juan Luis Muniz CONSENT: Written informed consent was obtained having explained the risks, benefits and alternatives in detail with the patient who accepted the risks and agreed to proceed. Laboratory review and clinical assessment was performed. CONSCIOUS SEDATION PROTOCOL: The Drugs used were: 2 mg Versed, IV., and 100 mcg Fentanyl, IV. The sedation time was: 16 minutes. Conscious sedation was started at 9:29 AM and terminated at 9:45 AM. The conscious sedation protocol was independently monitored. RADIATION DOSAGE (If Supplied By Facility): CTDIvol = ( 17 ) mGy, DLP = ( 341.66 ) mGycm Individualized dose optimization techniques were used for this CT. TECHNIQUE: Using CT image guidance with image documentation, a suitable location in the right lobe of the liver was identified. Using an anterior approach, puncture of the liver was uneventful with an 18-gauge core needle system. 3, 18-gauge core samples were obtained, and submitted in formalin to the pathologist for further assessment. Followup CT scan revealed no distinct sequelae. CT/Biopsy/Inj or Needle Placement IMPRESSION: 1. CT directed core needle biopsy of the liver, using CT image guidance with image documentation as described. 2. Conscious Sedation protocol utilized with independent monitoring. Electronically Signed: Jluis Mcknight MD at 10:32 EST ,
[2022-11-30 08:37] LABS: International Normalized Ratio 0.9; Prothrombin Time (Protime)PT. 12.3 SECONDS (11.7-14.9)
[2022-11-30 08:38] LABS: Partial Thromboplast Time 26.8 Seconds (24.1-36.2)
[2022-11-30] MEDS: Midazolam 2 MG/2 ML Syringe IV (09:29)
[2022-11-30] MEDS: fentaNYL 100 MCG/2 ML Ampul IV ×2 (09:29→09:52)
[2022-11-30] MEDS: Lidocaine 2% (20 ml mdv) 20 ML Vial INFILT (09:35)
== END | disposition home or self-care (01) ==
PROVIDERS: PCP Internal Medicine; Referring Provider Nurse Practitioner Adult Health; Visit Provider Nurse Practitioner Adult Health
DX: K74.00 Hepatic fibrosis, unspecified (principal); Z86.19 Personal history of other infectious and parasitic diseases
CPT/HCPCS: 47000; 96374; 36415; 77012; 85049; 85610; 85730; 88307; 88313; 99156; J7050

== ENCOUNTER → 2022-12-05 | Outpatient (CLI) | payer MEDICAID, SELFPAY ==
[2022-12-09 17:07] LABS: Immunoglobulin A 180 mg/dL (87-352); Immunoglobulin G 1326 mg/dL (586-1602); Immunoglobulin G, Subclass 1 669 mg/dL (248-810); Immunoglobulin G, Subclass 2 278 mg/dL (130-555); Immunoglobulin G, Subclass 3 92 mg/dL (15-102); Immunoglobulin G, Subclass 4 158 mg/dL (2-96); Immunoglobulin M 241 mg/dL (26-217)
[2022-12-09 20:28] LABS: Immunoglobulin E 76 IU/mL (6-495)
== END | disposition home or self-care (01) ==
PROVIDERS: PCP Internal Medicine; Visit Provider Nurse Practitioner Adult Health
DX: K73.9 Chronic hepatitis, unspecified (principal)
CPT/HCPCS: 36415; 82784; 82785; 82787

== ENCOUNTER → 2023-01-01 | Outpatient (CLI) | payer MEDICAID, SELFPAY ==
[2023-01-01 13:14] LABS: Erythrocyte Sedimentation Rate 28 mm/hr (0-30)
[2023-01-01 13:17] LABS: Absolute Lymphocyte Count 1.93 X10^3/uL (0.83-4.51); Absolute Neutrophil Count 6.1 X10^3/uL (2.0-7.7); Basophil# 0.05 X10^3/uL; Basophil% 0.6 % (0-1); Eosinophil# 0.16 X10^3/uL; Eosinophils% 1.8 % (0-5); Hematocrit 43.8 % (37-47); Hemoglobin 14.2 g/dL (12.0-15.0); Lymphocyte # 1.93 X10^3/ul (0.83-4.51); Lymphocyte % 21.9 % (19-41); Mean Corp Hgb Conc 32.4 g/dL (32-36); Mean Corpuscular Volume 89.6 fL (81-99); Mean Platelet Vol. 9.8 fl (6.2-12.0); Monocyte# 0.44 X10^3/uL; NRBC Flagged by Analyzer 0 % (0-5); Neutrophil # 6.09 X10^3/uL (2.7-7.7); Neutrophil % 69.1 % (47-70); Platelet Count 238 K/mm3 (150-450); RBC Distribution Width CV 14.1 % (11.6-14.6); RBC Distribution Width SD 45.6 fl (35.1-43.9); Red Blood Count 4.89 M/mm3 (4.2-5.4); White Blood Count 8.8 K/mm3 (4.4-11.0)
[2023-01-01 13:53] LABS: ALB/GLOB Ratio 0.8 RATIO (0.9-2.4); AST(SGOT) 19 U/L (15-37); Alanine Aminotransfer ALT/SGPT 24 U/L (13-56); Albumin, Serum 3.7 g/dL (3.2-5.0); Alkaline Phosphatase 92 U/L (45-117); Anion Gap 4 (5-15); BUN 18 mg/dL (7-18); BUN/Creat Ratio 20.2 RATIO (10-20); CRP < 2.90 mg/L (0.0-3.0); Calcium,Total 9.4 mg/dL (8.5-10.1); Chloride 101 mmol/L (98-107); Creatinine, Serum 0.89 mg/dL (0.55-1.02); EST Glomerular Filtration Rate 74 mL/min (>60); Est Glom Filt Rate - Afr Amer 90 mL/min (>60); Globulin 4.6 g/dL (2.2-4.2); Glucose 81 mg/dL (74-106); Potassium 3.6 mmol/L (3.5-5.1); Protein, Total 8.3 g/dL (6.4-8.2); Sodium Level 135 mmol/L (136-145)
[2023-01-02 09:50] LABS: Alpha Antitrypsin Serum 149 mg/dL (101-187)
[2023-01-02 17:07] LABS: IgG, Quant 1391 mg/dL (586-1602); Immunoglobulin G, Subclass 1 727 mg/dL (248-810); Immunoglobulin G, Subclass 2 283 mg/dL (130-555); Immunoglobulin G, Subclass 3 91 mg/dL (15-102)
[2023-01-03 14:20] LABS: Immunoglobulin G, Subclass 4 150 mg/dL (2-96)
== END | disposition home or self-care (01) ==
PROVIDERS: PCP Internal Medicine; Referring Provider Nurse Practitioner Adult Health; Visit Provider Nurse Practitioner Adult Health
DX: K75.4 Autoimmune hepatitis (principal)
CPT/HCPCS: 36415; 80053; 82103; 82784; 82787; 85025; 85652; 86140

== ENCOUNTER → 2023-01-17 | Outpatient (CLI) | payer MEDICAID, SELFPAY ==
[2023-01-17 15:16] LABS: Amylase 45 U/L (25-115); Lipase 25 U/L (13-75)
== END | disposition home or self-care (01) ==
LOC: LAB 13:57
PROVIDERS: PCP Internal Medicine; Visit Provider Nurse Practitioner Adult Health
DX: D89.89 Other specified disorders involving the immune mechanism, not elsewhere classified (principal)
CPT/HCPCS: 82150; 83690

== ENCOUNTER → 2023-02-12 | Outpatient (CLI) | payer MEDICAID, SELFPAY ==
[2023-02-12 13:39] LABS: Absolute Lymphocyte Count 2.01 X10^3/uL (0.83-4.51); Absolute Neutrophil Count 4.6 X10^3/uL (2.0-7.7); Basophil# 0.03 X10^3/uL; Basophil% 0.4 % (0-1); Eosinophil# 0.29 X10^3/uL; Eosinophils% 3.9 % (0-5); Hematocrit 43.6 % (37-47); Hemoglobin 14.2 g/dL (12.0-15.0); Lymphocyte # 2.01 X10^3/ul (0.83-4.51); Lymphocyte % 27.3 % (19-41); Mean Corp Hgb Conc 32.6 g/dL (32-36); Mean Corpuscular Volume 92.2 fL (81-99); Mean Platelet Vol. 9.5 fl (6.2-12.0); Monocyte# 0.37 X10^3/uL; NRBC Flagged by Analyzer 0 % (0-5); Neutrophil # 4.64 X10^3/uL (2.7-7.7); Neutrophil % 63.1 % (47-70); Platelet Count 241 K/mm3 (150-450); RBC Distribution Width CV 14.2 % (11.6-14.6); RBC Distribution Width SD 48.3 fl (35.1-43.9); Red Blood Count 4.73 M/mm3 (4.2-5.4); White Blood Count 7.4 K/mm3 (4.4-11.0)
[2023-02-12 14:28] LABS: ALB/GLOB Ratio 0.8 RATIO (0.9-2.4); AST(SGOT) 22 U/L (15-37); Alanine Aminotransfer ALT/SGPT 30 U/L (13-56); Albumin, Serum 3.4 g/dL (3.2-5.0); Alkaline Phosphatase 84 U/L (45-117); Anion Gap 3 (5-15); BUN 15 mg/dL (7-18); BUN/Creat Ratio 19.5 RATIO (10-20); Calcium,Total 8.9 mg/dL (8.5-10.1); Chloride 106 mmol/L (98-107); Creatinine, Serum 0.77 mg/dL (0.55-1.02); EST Glomerular Filtration Rate 88 mL/min (>60); Est Glom Filt Rate - Afr Amer 106 mL/min (>60); Glucose 116 mg/dL (74-106); Lipase 29 U/L (13-75); Protein, Total 7.4 g/dL (6.4-8.2); Sodium Level 139 mmol/L (136-145)
== END | disposition home or self-care (01) ==
LOC: LAB 12:19
PROVIDERS: PCP Internal Medicine; Referring Provider Nurse Practitioner Adult Health; Visit Provider Nurse Practitioner Adult Health
DX: K75.4 Autoimmune hepatitis (principal); D89.89 Other specified disorders involving the immune mechanism, not elsewhere classified
CPT/HCPCS: 36415; 80053; 83690; 85025

== ENCOUNTER → 2023-03-01 | Outpatient (CLI) | payer MEDICAID, SELFPAY ==
[2023-03-01 11:46] LABS: Absolute Lymphocyte Count 1.86 X10^3/uL (0.83-4.51); Absolute Neutrophil Count 3.2 X10^3/uL (2.0-7.7); Basophil# 0.03 X10^3/uL; Basophil% 0.5 % (0-1); Eosinophil# 0.24 X10^3/uL; Eosinophils% 4.1 % (0-5); Hematocrit 42.9 % (37-47); Hemoglobin 13.9 g/dL (12.0-15.0); Lymphocyte # 1.86 X10^3/ul (0.83-4.51); Mean Corp Hgb Conc 32.4 g/dL (32-36); Mean Corpuscular Hgb 29.1 pg (27.0-32.0); Mean Corpuscular Volume 89.9 fL (81-99); Mean Platelet Vol. 9.5 fl (6.2-12.0); Monocyte# 0.43 X10^3/uL; Monocyte% 7.4 % (0-10); NRBC Flagged by Analyzer 0 % (0-5); Neutrophil # 3.24 X10^3/uL (2.7-7.7); Neutrophil % 55.7 % (47-70); Platelet Count 247 K/mm3 (150-450); RBC Distribution Width CV 14.2 % (11.6-14.6); RBC Distribution Width SD 46.9 fl (35.1-43.9); Red Blood Count 4.77 M/mm3 (4.2-5.4); White Blood Count 5.8 K/mm3 (4.4-11.0)
[2023-03-01 12:26] LABS: ALB/GLOB Ratio 0.9 RATIO (0.9-2.4); AST(SGOT) 24 U/L (15-37); Alanine Aminotransfer ALT/SGPT 26 U/L (13-56); Albumin, Serum 3.6 g/dL (3.2-5.0); Alkaline Phosphatase 78 U/L (45-117); Anion Gap 2 (5-15); BUN 9 mg/dL (7-18); BUN/Creat Ratio 11.6 RATIO (10-20); Calcium,Total 9.2 mg/dL (8.5-10.1); Chloride 107 mmol/L (98-107); Creatinine, Serum 0.77 mg/dL (0.55-1.02); EST Glomerular Filtration Rate 87 mL/min (>60); Est Glom Filt Rate - Afr Amer 105 mL/min (>60); Globulin 4.1 g/dL (2.2-4.2); Glucose 102 mg/dL (74-106); Lipase 23 U/L (13-75); Potassium 4.1 mmol/L (3.5-5.1); Protein, Total 7.7 g/dL (6.4-8.2); Sodium Level 138 mmol/L (136-145)
== END | disposition home or self-care (01) ==
LOC: LAB 11:13
PROVIDERS: PCP Internal Medicine; Referring Provider Nurse Practitioner Adult Health; Visit Provider Nurse Practitioner Adult Health
DX: K75.4 Autoimmune hepatitis (principal)
CPT/HCPCS: 36415; 80053; 83690; 85025

== ENCOUNTER → 2023-03-27 | Outpatient (CLI) | payer MEDICAID, SELFPAY ==
[2023-03-27 14:39] LABS: Absolute Lymphocyte Count 2.32 X10^3/uL (0.83-4.51); Absolute Neutrophil Count 6.3 X10^3/uL (2.0-7.7); Basophil# 0.04 X10^3/uL; Basophil% 0.4 % (0-1); Eosinophil# 0.22 X10^3/uL; Eosinophils% 2.3 % (0-5); Hematocrit 40.4 % (37-47); Hemoglobin 13.4 g/dL (12.0-15.0); Lymphocyte # 2.32 X10^3/ul (0.83-4.51); Lymphocyte % 24.7 % (19-41); Mean Corp Hgb Conc 33.2 g/dL (32-36); Mean Corpuscular Hgb 30.1 pg (27.0-32.0); Mean Corpuscular Volume 90.8 fL (81-99); Mean Platelet Vol. 9.6 fl (6.2-12.0); Monocyte% 5.3 % (0-10); NRBC Flagged by Analyzer 0 % (0-5); Neutrophil # 6.27 X10^3/uL (2.7-7.7); Platelet Count 213 K/mm3 (150-450); RBC Distribution Width CV 13.4 % (11.6-14.6); Red Blood Count 4.45 M/mm3 (4.2-5.4); White Blood Count 9.4 K/mm3 (4.4-11.0)
[2023-03-27 15:19] LABS: AST(SGOT) 19 U/L (15-37); Alanine Aminotransfer ALT/SGPT 20 U/L (13-56); Albumin, Serum 3.7 g/dL (3.2-5.0); Alkaline Phosphatase 77 U/L (45-117); Anion Gap 4 (5-15); BUN 13 mg/dL (7-18); BUN/Creat Ratio 12.6 RATIO (10-20); Calcium,Total 9.4 mg/dL (8.5-10.1); Chloride 105 mmol/L (98-107); Creatinine, Serum 1.03 mg/dL (0.55-1.02); EST Glomerular Filtration Rate 62 mL/min (>60); Est Glom Filt Rate - Afr Amer 76 mL/min (>60); Globulin 3.7 g/dL (2.2-4.2); Glucose 103 mg/dL (74-106); Potassium 3.7 mmol/L (3.5-5.1); Protein, Total 7.4 g/dL (6.4-8.2); Sodium Level 137 mmol/L (136-145)
[2023-03-29 14:09] LABS: IgG, Quant 1156 mg/dL (586-1602); Immunoglobulin G, Subclass 1 601 mg/dL (248-810); Immunoglobulin G, Subclass 2 276 mg/dL (130-555); Immunoglobulin G, Subclass 3 79 mg/dL (15-102); Immunoglobulin G, Subclass 4 135 mg/dL (2-96)
== END | disposition home or self-care (01) ==
LOC: LAB 14:05
PROVIDERS: Nurse Practitioner Adult Health; PCP Internal Medicine; Referring Provider Internal Medicine Gastroenterology; Visit Provider Internal Medicine Gastroenterology
DX: K75.4 Autoimmune hepatitis (principal)
CPT/HCPCS: 36415; 80053; 82784; 82787; 85025

== ENCOUNTER → 2023-05-22 | Outpatient (CLI) | payer MEDICAID, SELFPAY ==
[2023-05-22 11:13] LABS: Absolute Lymphocyte Count 1.38 X10^3/uL (0.83-4.51); Absolute Neutrophil Count 3.8 X10^3/uL (2.0-7.7); Basophil# 0.02 X10^3/uL; Basophil% 0.4 % (0-1); Eosinophils% 3.5 % (0-5); Hematocrit 45.1 % (37-47); Hemoglobin 14.6 g/dL (12.0-15.0); Lymphocyte # 1.38 X10^3/ul (0.83-4.51); Lymphocyte % 24.3 % (19-41); Mean Corp Hgb Conc 32.4 g/dL (32-36); Mean Corpuscular Hgb 29.6 pg (27.0-32.0); Mean Corpuscular Volume 91.3 fL (81-99); Mean Platelet Vol. 9.6 fl (6.2-12.0); Monocyte# 0.32 X10^3/uL; Monocyte% 5.6 % (0-10); NRBC Flagged by Analyzer 0 % (0-5); Neutrophil # 3.76 X10^3/uL (2.7-7.7); Platelet Count 201 K/mm3 (150-450); RBC Distribution Width SD 43.2 fl (35.1-43.9); Red Blood Count 4.94 M/mm3 (4.2-5.4); White Blood Count 5.7 K/mm3 (4.4-11.0)
[2023-05-22 11:41] LABS: ALB/GLOB Ratio 0.9 RATIO (0.9-2.4); AST(SGOT) 17 U/L (15-37); Alanine Aminotransfer ALT/SGPT 19 U/L (13-56); Albumin, Serum 3.6 g/dL (3.2-5.0); Alkaline Phosphatase 78 U/L (45-117); Anion Gap 4 (5-15); BUN 12 mg/dL (7-18); BUN/Creat Ratio 15.6 RATIO (10-20); Calcium,Total 8.8 mg/dL (8.5-10.1); Chloride 107 mmol/L (98-107); Creatinine, Serum 0.77 mg/dL (0.55-1.02); EST Glomerular Filtration Rate 88 mL/min (>60); Est Glom Filt Rate - Afr Amer 106 mL/min (>60); Globulin 3.8 g/dL (2.2-4.2); Glucose 82 mg/dL (74-106); Potassium 3.4 mmol/L (3.5-5.1); Protein, Total 7.4 g/dL (6.4-8.2); Sodium Level 139 mmol/L (136-145)
== END | disposition home or self-care (01) ==
PROVIDERS: PCP Internal Medicine; Referring Provider Internal Medicine Gastroenterology; Visit Provider Internal Medicine Gastroenterology
DX: K75.4 Autoimmune hepatitis (principal)
CPT/HCPCS: 36415; 80053; 85025

== ENCOUNTER → 2023-09-02 | Outpatient (CLI) | payer MEDICAID, SELFPAY ==
[2023-09-02 13:13] LABS: Mucous, Urine 0 SEEN /hpf (<or=2+)
[2023-09-02 13:44] LABS: Absolute Lymphocyte Count 1.09 X10^3/uL (0.83-4.51); Absolute Neutrophil Count 6.7 X10^3/uL (2.0-7.7); Basophil# 0.04 X10^3/uL; Basophil% 0.5 % (0-1); Eosinophil# 0.15 X10^3/uL; Eosinophils% 1.8 % (0-5); Hematocrit 44.5 % (37-47); Hemoglobin 14.7 g/dL (12.0-15.0); Lymphocyte # 1.09 X10^3/ul (0.83-4.51); Lymphocyte % 13.1 % (19-41); Mean Corpuscular Hgb 29.9 pg (27.0-32.0); Mean Corpuscular Volume 90.6 fL (81-99); Mean Platelet Vol. 9.7 fl (6.2-12.0); Monocyte# 0.31 X10^3/uL; Monocyte% 3.7 % (0-10); NRBC Flagged by Analyzer 0 % (0-5); Neutrophil # 6.67 X10^3/uL (2.7-7.7); Neutrophil % 80.4 % (47-70); Platelet Count 231 K/mm3 (150-450); RBC Distribution Width SD 42.7 fl (35.1-43.9); Red Blood Count 4.91 M/mm3 (4.2-5.4); White Blood Count 8.3 K/mm3 (4.4-11.0)
[2023-09-02 13:55] LABS: Color, Urine Yellow (Yellow); Glucose, Dipstick Normal (Normal); Ketone-Dipstick Negative (Negative); Leukocyte Esterase-Dipstick 500 /ul (Negative); Nitrite-Dipstick Negative (Negative); Occult Blood-Urine 250 /ul (Negative); Protein-Dipstick 15 mg/dl (Negative); Urine Bilirubin Dipstick Negative (Negative); Urine Clarity Sl. Cloudy (Clear); Urine Urobilinogen Normal (Normal); Urine pH 6.5 (5.0 - 8.0)
[2023-09-02 14:00] LABS: Protein, Urine (Random) 13.2 mg/dL (<11.9); Protein:Creat Ratio 83 mg/g CRE (0-200)
[2023-09-02 14:03] LABS: Bacteria 1+ /hpf (None Seen); Red Blood Cells-Urine 25-50 SEEN /hpf (0-5); Squamous Epithelial Cells - UA 0-5 SEEN /hpf (5-10); White Blood Cells 25-50 SEEN /hpf (0-5)
[2023-09-02 14:08] LABS: AST(SGOT) 22 U/L (15-37); Alanine Aminotransfer ALT/SGPT 22 U/L (13-56); Albumin, Serum 3.9 g/dL (3.2-5.0); Alkaline Phosphatase 84 U/L (45-117); Anion Gap 5 (5-15); BUN 16 mg/dL (7-18); BUN/Creat Ratio 20.4 RATIO (10-20); Calcium,Total 8.7 mg/dL (8.5-10.1); Chloride 105 mmol/L (98-107); Creatinine, Serum 0.78 mg/dL (0.55-1.02); EST Glomerular Filtration Rate 85 mL/min (>60); Est Glom Filt Rate - Afr Amer 103 mL/min (>60); Glucose 93 mg/dL (74-106); Potassium 3.5 mmol/L (3.5-5.1); Protein, Total 7.9 g/dL (6.4-8.2); Rheumatoid Factor < 10.0 IU/mL (<15); Sodium Level 137 mmol/L (136-145)
[2023-09-02 14:21] LABS: Hepatitis B Surface Antibody Reactive; Hepatitis B Surface Antigen Non-Reactive (Nonreactive); Vitamin D,25 Hydroxy 33.2 ng/mL
== END | disposition home or self-care (01) ==
PROVIDERS: PCP Internal Medicine; Referring Provider Internal Medicine; Visit Provider Internal Medicine
DX: M25.50 Pain in unspecified joint (principal); E55.9 Vitamin D deficiency, unspecified
CPT/HCPCS: 36415; 80053; 81001; 82306; 82570; 84156; 85025; 86200; 86431; 86480; 86704; 86706; 86803; 86804; 87340

== ENCOUNTER → 2023-12-05 | Outpatient (CLI) | payer MEDICAID, SELFPAY ==
--- NOTE | 2023-12-05 13:50 | RAD_ITS ---
INDICATION: Low back pain EXAMINATION/TECHNIQUE: X-RAY - XR Spine Lumbar Min 4 Views COMPARISON: Prior study dated: 11/08/2022 FINDINGS: VERTEBRAE: Preserved vertebral body height. No fracture. No spondylolisthesis. Preservation of the normal lumbar lordosis. There is minimal levoscoliosis. No significant facet arthropathy. DISCS: Mild narrowing of L3-L4 disc space. INCLUDED ABDOMEN: Included bowel gas pattern is non-obstructive. RAD/L/S Spine Min 4 Views IMPRESSION: Mild narrowing of L3-L4 disc space. Electronically Signed: Randall Guadalupe MD at 14:26 EST ,
== END | disposition home or self-care (01) ==
LOC: MTRAD 13:50
PROVIDERS: PCP Internal Medicine; Referring Provider Physician Assistant Surgical; Visit Provider Physician Assistant Surgical
DX: S39.012A Strain of muscle, fascia and tendon of lower back, initial encounter (principal)
CPT/HCPCS: 72110

== ENCOUNTER → 2024-03-06 | Outpatient (CLI) | payer MEDICAID, SELFPAY ==
[2024-03-06 09:37] LABS: Erythrocyte Sedimentation Rate 7 mm/hr (0-30)
[2024-03-06 09:39] LABS: Absolute Lymphocyte Count 1.81 X10^3/uL (0.83-4.51); Absolute Neutrophil Count 5.7 X10^3/uL (2.0-7.7); Basophil# 0.03 X10^3/uL; Basophil% 0.4 % (0-1); Eosinophil# 0.25 X10^3/uL; Eosinophils% 3.1 % (0-5); Hematocrit 44.9 % (37-47); Hemoglobin 14.5 g/dL (12.0-15.0); Lymphocyte # 1.81 X10^3/ul (0.83-4.51); Lymphocyte % 22.1 % (19-41); Mean Corp Hgb Conc 32.3 g/dL (32-36); Mean Corpuscular Hgb 30.1 pg (27.0-32.0); Mean Corpuscular Volume 93.3 fL (81-99); Mean Platelet Vol. 10.3 fl (6.2-12.0); Monocyte# 0.35 X10^3/uL; Monocyte% 4.3 % (0-10); NRBC Flagged by Analyzer 0 % (0-5); Neutrophil # 5.71 X10^3/uL (2.7-7.7); Neutrophil % 69.7 % (47-70); Platelet Count 201 K/mm3 (150-450); RBC Distribution Width CV 12.9 % (11.6-14.6); RBC Distribution Width SD 44.3 fl (35.1-43.9); Red Blood Count 4.81 M/mm3 (4.2-5.4); White Blood Count 8.2 K/mm3 (4.4-11.0)
[2024-03-06 10:03] LABS: ALB/GLOB Ratio 1.1 RATIO (0.9-2.4); AST(SGOT) 17 U/L (15-37); Alanine Aminotransfer ALT/SGPT 17 U/L (13-56); Albumin, Serum 4.1 g/dL (3.2-5.0); Alkaline Phosphatase 68 U/L (45-117); Anion Gap 7 (5-15); BUN 14 mg/dL (7-18); BUN/Creat Ratio 16.2 RATIO (10-20); CRP < 2.90 mg/L (0.0-3.0); Calcium,Total 9.6 mg/dL (8.5-10.1); Chloride 104 mmol/L (98-107); Creatinine, Serum 0.86 mg/dL (0.55-1.02); EST Glomerular Filtration Rate 76 mL/min (>60); Est Glom Filt Rate - Afr Amer 92 mL/min (>60); Globulin 3.7 g/dL (2.2-4.2); Glucose 85 mg/dL (74-106); Potassium 3.5 mmol/L (3.5-5.1); Protein, Total 7.8 g/dL (6.4-8.2); Sodium Level 138 mmol/L (136-145)
[2024-03-06 10:54] LABS: Hepatitis C Antibody REACTIVE (Nonreactive)
== END | disposition home or self-care (01) ==
PROVIDERS: PCP Internal Medicine; Referring Provider Internal Medicine Gastroenterology; Visit Provider Internal Medicine Gastroenterology
DX: D89.89 Other specified disorders involving the immune mechanism, not elsewhere classified (principal); K75.4 Autoimmune hepatitis
CPT/HCPCS: 36415; 80053; 80074; 82784; 82785; 82787; 84165; 85025; 85652; 86140; 86334; 86664; 86665; 86803; 87522; 87902